=== PATIENT | female | born 1960 | race Caucasian/White ===

== ENCOUNTER 2018-05-06 11:52 | Inpatient (IN) | payer MEDICARE, MEDICAID, SELFPAY ==
[2018-05-06] VITALS (12 sets, daily range): BP systolic 115–138; BP diastolic 60–80; PULSE 88–107; RESP 4–28; TEMP 36.4–36.9; O2SAT 92–99
--- NOTE | 2018-05-06 12:05 | DI.RAD_ITS ---
SYMPTOMS/DIAGNOSIS: COPD, COUGH PA AND LATERAL CHEST: The heart is not enlarged. There are areas of apparent scarring in the lung bases bilaterally, probably unchanged from examination of 05/06/2016. No acute consolidations seen. No pleural effusions seen. The cardiac size is within normal limits. CONCLUSION: No evidence of acute disease.
--- NOTE | 2018-05-06 12:07 | W.ED.GENAD ---
Discharge Plan Disposition Patient Disposition: [facility] INPATIENT Condition: Good Discharge Details Chief Complaint: RespSymp Clinical Impression: Pneumonia involving right lung, COPD exacerbation Reason For Visit: BRIDGER Primary Care Provider: Laura Renae ED Provider: Kareem Silva Home Meds and New Rx's Prescriptions: No Action cyclobenzaprine 10 MG tablet 10 mg PO BID RF: 0 trazodone 50 MG tablet 50 mg PO HS RF: 0 venlafaxine [Effexor XR] 150 MG capsule,extended release 24hr 150 mg PO DAILY RF: 0 pregabalin [Lyrica] 100 MG capsule 150 mg PO TID RF: 0 naproxen 500 MG tablet 500 mg PO BID Qty: 30 RF: 0 lisinopril 2.5 MG tablet 2.5 mg PO HS RF: 0 doxycycline monohydrate 75 mg Tablet 100 mg PO BID RF: 0 benzonatate 200 mg Capsule 200 mg PO BID RF: 0 meclizine 25 mg Tablet 25 mg PO TID RF: 0 ipratropium-albuterol [Combivent Respimat] 20-100 mcg/actuation Mist 20 - 100 % RF: 0 bupropion HCl [Wellbutrin XL] 300 mg Tablet Extended Release 24 Hr 300 mg PO DAILY RF: 0 Medical Decision Making 57-year-old female smoker with a history of COPD presents with persistent cough despite 4-5 days of antibiotic therapy (doxycycline), with persistent congestion, wheeze. She arrives with an oxygen of 92%, able speak in full sentences and with otherwise reassuring vital signs. Deferred diagnosis includes pneumonia, bronchitis, COPD exacerbation. Patient had IV access established, given steroids, inhaled DuoNeb, referred for laboratory testing and chest x-ray. Diagnostics are notable for right-sided infiltrate on chest x-ray. Her laboratories are reassuring. Patient given dose of ceftriaxone. Clinically, patient has persistent hypoxia and when ambulatory will desaturate and become tachycardic with recurrent paroxysms of cough. Given the hypoxia, tachycardia, & infiltrate, I will recommend admission for further management. HPI General Mode of arrival: EMS. Date/Time Provider Initiated Documentation: 05/06/18 11:57. Limitations to Documentation: no limitations. Information obtained by: patient and EMS. History of Present Illness 57 year old F presents to the emergency department with the chief complaint of Cough, described as moderate, Quality is described as constant, Patient reports no radiation. Patient started experiencing this day(s) and it has been intermittent. No exacerbating factors reported . Patient did receive the following treatments prior to arrival, none HPI Narrative: Cough: 57-year-old female's with a history of COPD presents from home via EMS. She has had a week of cough, congestion, production of green sputum. She was seen at her primary care physician's office in [place], [place] and started on doxycycline, now day 5. Persistent cough and dyspnea at home with associated wheeze that was refractive to inhalers. She called EMS and was transported to the ED Related Data Home Medications Medication Instructions Recorded Confirmed cyclobenzaprine 10 mg PO BID 05/26/15 05/06/18 pregabalin [Lyrica] 150 mg PO TID 05/26/15 05/06/18 trazodone 50 mg PO HS 05/26/15 05/06/18 venlafaxine [Effexor XR] 150 mg PO DAILY 05/26/15 05/06/18 naproxen 500 mg PO BID #30 tablet 10/06/15 05/06/18 lisinopril 2.5 mg PO HS 09/20/17 05/06/18 benzonatate 200 mg PO BID 05/06/18 05/06/18 bupropion HCl [Wellbutrin XL] 300 mg PO DAILY 05/06/18 05/06/18 doxycycline monohydrate 100 mg PO BID 05/06/18 05/06/18 ipratropium-albuterol [Combivent 20 - 100 % 05/06/18 Respimat] meclizine 25 mg PO TID 05/06/18 05/06/18 Previous Rx's Medication Instructions Recorded naproxen 500 mg PO BID #30 tablet 10/06/15 Allergies Allergy/AdvReac Type Severity Reaction Status Date / Time No Known Allergies Allergy Unverified 09/20/17 13:34 General Stated Complaint: RespSymp LILLY: 3 Review of Systems Review of Systems 8 systems reviewed and otherwise negative PFSH Social History Smoking/Tobacco Use Status: Current every day Exam Narrative Exam Narrative: GEN: awake, alert, oriented 3. Pleasant, well groomed, interactive. HEAD: Normocephalic, atraumatic ENT: Mucous membranes moist, oropharynx unremarkable, External ear exam unremarkable EYES: PERRL, EOMI NECK: Full ROM, no LUCILA, no menigismus CHEST/RESP: Nontender, cough noted, basilar rhonchi with end expiratory wheeze bilaterally CARDIOVASCULAR: RRR, no murmur, rub chacorta. 2+ Rad pulse bilateral ABDOMEN: Soft, nontender, no mass. +Bowel sounds EXT: Full ROM, no edema, no rash Neuro: Grossly normal neurologic exam, conversant, interactive. Psych: Speech fluent, thoughts congruent, affect normal Course Vital Signs Temperature 36.8 C 05/06/18 11:57 Pulse 94 H 05/06/18 11:57 Respiratory Rate 18 05/06/18 11:57 Blood Pressure 118/74 05/06/18 11:57 Pulse Oximetry 92 L 05/06/18 11:57 Temperature 36.8 C 05/06/18 12:02 Temperature Source Temporal Artery Scan 05/06/18 12:02 Pulse 94 H 05/06/18 12:02 Respiratory Rate 28 H 05/06/18 12:02 Respiratory Effort Labored 05/06/18 12:00 Respiratory Depth Shallow 05/06/18 12:00 Blood Pressure 118/74 05/06/18 12:02 Blood Pressure Position Sitting 05/06/18 11:57 Pulse Oximetry 92 L 05/06/18 12:02 Oxygen Delivery Method Room Air 05/06/18 12:02 Oxygen Flow Rate 0 05/06/18 12:02 Pain Level 0 05/06/18 11:57
[2018-05-06] MEDS: Albuterol/Ipratropium 3 ML UPD VIAL ×2 (12:08→12:54)
--- NOTE | 2018-05-06 12:10 | ED.GENADUL_ITS ---
Discharge Plan Disposition Patient Disposition: [facility] INPATIENT Condition: Good Discharge Details Chief Complaint: RespSymp Clinical Impression: Pneumonia involving right lung, COPD exacerbation Reason For Visit: BRIDGER Primary Care Provider: Laura Renae ED Provider: Kareem Silva Home Meds and New Rx's Prescriptions: No Action cyclobenzaprine 10 MG tablet 10 mg PO BID RF: 0 trazodone 50 MG tablet 50 mg PO HS RF: 0 venlafaxine [Effexor XR] 150 MG capsule,extended release 24hr 150 mg PO DAILY RF: 0 pregabalin [Lyrica] 100 MG capsule 150 mg PO TID RF: 0 naproxen 500 MG tablet 500 mg PO BID Qty: 30 RF: 0 lisinopril 2.5 MG tablet 2.5 mg PO HS RF: 0 doxycycline monohydrate 75 mg Tablet 100 mg PO BID RF: 0 benzonatate 200 mg Capsule 200 mg PO BID RF: 0 meclizine 25 mg Tablet 25 mg PO TID RF: 0 ipratropium-albuterol [Combivent Respimat] 20-100 mcg/actuation Mist 20 - 100 % RF: 0 bupropion HCl [Wellbutrin XL] 300 mg Tablet Extended Release 24 Hr 300 mg PO DAILY RF: 0 Medical Decision Making 57-year-old female smoker with a history of COPD presents with persistent cough despite 4-5 days of antibiotic therapy (doxycycline), with persistent congestion , wheeze. She arrives with an oxygen of 92%, able speak in full sentences and with otherwise reassuring vital signs. Deferred diagnosis includes pneumonia, bronchitis, COPD exacerbation. Patient had IV access established, given steroids, inhaled DuoNeb, referred for laboratory testing and chest x-ray. Diagnostics are notable for right-sided infiltrate on chest x-ray. Her laboratories are reassuring. Patient given dose of ceftriaxone. Clinically, patient has persistent hypoxia and when ambulatory will desaturate and become tachycardic with recurrent paroxysms of cough. Given the hypoxia, tachycardia, & infiltrate, I will recommend admission for further management. HPI General Mode of arrival: EMS . Date/Time Provider Initiated Documentation: 05/06/18 11:57 . Limitations to Documentation: no limitations . Information obtained by: patient and EMS . History of Present Illness 57 year old F presents to the emergency department with the chief complaint of Cough, described as moderate, Quality is described as constant, Patient reports no radiation. Patient started experiencing this day(s) and it has been intermittent. No exacerbating factors reported . Patient did receive the following treatments prior to arrival, none HPI Narrative: Cough: 57-year-old female's with a history of COPD presents from home via EMS. She has had a week of cough, congestion, production of green sputum. She was seen at her primary care physician's office in [place], [place] and started on doxycycline, now day 5. Persistent cough and dyspnea at home with associated wheeze that was refractive to inhalers. She called EMS and was transported to the ED Related Data Home Medications Medication Instructions Recorded Confirmed cyclobenzaprine 10 mg PO BID 05/26/15 05/06/18 pregabalin [Lyrica] 150 mg PO TID 05/26/15 05/06/18 trazodone 50 mg PO HS 05/26/15 05/06/18 venlafaxine [Effexor XR] 150 mg PO DAILY 05/26/15 05/06/18 naproxen 500 mg PO BID #30 tablet 10/06/15 05/06/18 lisinopril 2.5 mg PO HS 09/20/17 05/06/18 benzonatate 200 mg PO BID 05/06/18 05/06/18 bupropion HCl [Wellbutrin XL] 300 mg PO DAILY 05/06/18 05/06/18 doxycycline monohydrate 100 mg PO BID 05/06/18 05/06/18 ipratropium-albuterol [Combivent 20 - 100 % 05/06/18 Respimat] meclizine 25 mg PO TID 05/06/18 05/06/18 Previous Rx's Medication Instructions Recorded naproxen 500 mg PO BID #30 tablet 10/06/15 Allergies Allergy/AdvReac Type Severity Reaction Status Date / Time No Known Allergies Allergy Unverified 09/20/17 13:34 General Stated Complaint: RespSymp LILLY: 3 Review of Systems Review of Systems 8 systems reviewed and otherwise negative PFSH Social History Smoking/Tobacco Use Status: Current every day Exam Narrative Exam Narrative: GEN: awake, alert, oriented 3. Pleasant, well groomed, interactive. HEAD: Normocephalic, atraumatic ENT: Mucous membranes moist, oropharynx unremarkable, External ear exam unremarkable EYES: PERRL, EOMI NECK: Full ROM, no LUCILA, no menigismus CHEST/RESP: Nontender, cough noted, basilar rhonchi with end expiratory wheeze bilaterally CARDIOVASCULAR: RRR, no murmur, rub chacorta. 2+ Rad pulse bilateral ABDOMEN: Soft, nontender, no mass. +Bowel sounds EXT: Full ROM, no edema, no rash Neuro: Grossly normal neurologic exam, conversant, interactive. Psych: Speech fluent, thoughts congruent, affect normal Course Vital Signs Temperature 36.8 C 05/06/18 11:57 Pulse 94 H 05/06/18 11:57 Respiratory Rate 18 05/06/18 11:57 Blood Pressure 118/74 05/06/18 11:57 Pulse Oximetry 92 L 05/06/18 11:57 Temperature 36.8 C 05/06/18 12:02 Temperature Source Temporal Artery Scan 05/06/18 12:02 Pulse 94 H 05/06/18 12:02 Respiratory Rate 28 H 05/06/18 12:02 Respiratory Effort Labored 05/06/18 12:00 Respiratory Depth Shallow 05/06/18 12:00 Blood Pressure 118/74 05/06/18 12:02 Blood Pressure Position Sitting 05/06/18 11:57 Pulse Oximetry 92 L 05/06/18 12:02 Oxygen Delivery Method Room Air 05/06/18 12:02 Oxygen Flow Rate 0 05/06/18 12:02 Pain Level 0 05/06/18 11:57
[2018-05-06] MEDS: MAGNESIUM SULFATE 2 GM/50 ML BAG IVPB (12:22)
[2018-05-06] MEDS: methylPREDNISolone SUCC 125 MG VIAL IVP (12:22)
[2018-05-06 12:37] LABS: HCT 40.8 % (36.0-46.0); HGB 13.7 g/dL (12.0-15.5); Mean Corp. HGB Concentration 33.6 g/dL (32.0-36.0); Mean Corpuscular Hemoglobin 31.8 pg (27.0-33.0); Mean Corpuscular Volume 94.7 fL (80-95); Mean Platelet Volume 10.3 fL (8.0-11.0); Platelet Count 305 x1000/uL (130-400); RBC 4.31 m/cumm (4.00-5.20); RBC Distribution Width 13.4 % (11.7-14.6); White Blood Cell Count 9.01 k/cumm (4.4-10.8)
[2018-05-06 12:57] LABS: ALT 20 U/L (12-78); AST 19 U/L (15-37); Albumin 3.3 g/dL (3.4-5.0); Alkaline Phosphatase 100 U/L (46-116); Anion Gap 9.7 mmol/L (3-11); BUN 14 mg/dL (7-18); Bilirubin, Total 0.4 mg/dL (0.2-1.0); CO2 25.3 mmol/L (21.0-32.0); CREATININE 0.97 mg/dL (0.55-1.02); Calcium 9.4 mg/dL (8.5-10.1); Chloride 104 mmol/L (98-107); Estimated GFR 58.78 (mL/min/1.73m2); Glucose 100 mg/dL (70-100); Sodium 139 mmol/L (136-145); Total Protein 7.3 g/dL (6.4-8.2)
[2018-05-06 13:01] LABS: Absolute Eosinophil Count 0.09 k/cumm (0.0-0.7); Absolute Lymphocyte Count 2.61 k/cumm (1.2-3.4); Absolute Monocyte Count 0.63 k/cumm (0.11-0.7); Absolute Neutrophil Count 5.68 k/cumm (1.2-6.7); Atypical Lymphocytes % 5; Diff Comment Manual Differential
[2018-05-06 13:02] LABS: RBC Morphology Normal
--- NOTE | 2018-05-06 13:29 | NUR.NOTE ---
Ambulated 50 feet around the department. Pt SpO2 to 90% tachycardia at 120, Dr Silva notified Nursing Note:
--- NOTE | 2018-05-06 14:27 | NUR.NOTE ---
Therese Smalls received report to assume care. Pt transported to room 206Nursing Note:
--- NOTE | 2018-05-06 15:59 | HPE_ITS ---
Date of service: 05/06/18 Time of Service: 15:41 Assessment and Plan (1) Pneumonia: Current visit: Yes Status: Acute With evidence of right-sided infiltrate according to Dr. Silva in the emergency room, however according to radiologist there is in no acute consolidations seen with appearance of scarring in the lung bases bilaterally. Nevertheless we will treat for COPD exacerbation with azithromycin and ceftriaxone. Additionally will administer scheduled duo nebs every 6 hours in addition to as needed albuterol. Has extensive wheezing and would likely benefit from IV corticosteroids. Received 125 mg of IV Solu-Medrol. Continue with 60 mg every 8 hours and titrate downwards. Would benefit from a prolonged prednisone taper. No evidence that blood cultures were drawn prior to initiation of antibiotics. Remains afebrile with no leukocytosis. Monitor daily blood work to include a CBC with differential and BMP. Nursing to obtain vital signs every shift and as needed and to monitor intake and output. (2) COPD (chronic obstructive pulmonary disease): Current visit: Yes Status: Chronic Combivent on hold while administering nebulizer treatments. Otherwise plan as above (3) Hypertension: Current visit: Yes Status: Chronic Normotensive on outpatient regimen which includes lisinopril. We will continue here in the hospital. Placed on a heart healthy diet. (4) Depression with anxiety: Current visit: Yes Status: Acute Continue outpatient therapy. (5) DVT prophylaxis: Current visit: Yes Status: Acute Subcutaneous Lovenox. Has a history of pulmonary embolism in the past, however I suspect her respiratory symptoms are related to COPD exacerbation secondary to upper respiratory infection. Treatment as above. If she becomes hypoxemic despite treatment would consider chest CTA as d-dimer is bound to be elevated during acute infectious process. History of Present Illness Chief Complaint: Cough, shortness of breath Narrative: Nedra is a 57-year-old woman with depression/anxiety, hypertension , inappropriate sinus tachycardia, history of pulmonary embolism, insomnia, chronic back pain, COPD who presents to the emergency department today via EMS with persistent cough, shortness of breath unrelieved by outpatient doxycycline. Symptoms began roughly 2 weeks ago. She describes developing a common cold with elevated temperature with T-max of 101.6. She presented to [facility] and was given a cough suppressant which really seemed to help. She felt some improvement, however over the course of the next couple of days she developed a cough, congestion and increasing shortness of breath. She returned to her PCP and was given a prescription for doxycycline which she started 4-5 days ago. Unfortunately this has not helped her symptoms. Continues with a dry, persistent cough and significant shortness of breath. Nothing seems to make symptoms better or worse. Denies associated signs/ symptoms. Today her dyspnea became so severe that she activated EMS and was transported to the emergency department. In the emergency room she had screening blood work which was essentially normal. Chest x-ray showed possible right sided infiltrate. She was given a dose of IV ceftriaxone and admitted to the hospitalist service for further monitoring secondary to hypoxia, tachycardia on exertion. Review of Systems Constitutional Reports as per HPI, Reports difficulty sleeping, Reports fatigue, Reports fever( s) and Reports weakness Eyes Reports system reviewed and no additional complaints, except as docu ENT Reports system reviewed and no additional complaints, except as docu Cardiovascular Reports rapid heart rate, Reports dyspnea and Reports dyspnea on exertion Respiratory Reports as per HPI, Reports chest congestion, Reports cough, Reports excessive phlegm production, Reports dyspnea, Reports dyspnea on exertion and Reports wheezing Gastrointestinal Reports system reviewed and no additional complaints, except as docu Genitourinary Reports system reviewed and no additional complaints, except as docu Musculoskeletal Reports system reviewed and no additional complaints, except as docu Integumentary/Breasts Reports system reviewed and no additional complaints, except as docu Neurologic Reports system reviewed and no additional complaints, except as docu and Reports weakness Psychiatric Reports abnormal sleep pattern, Reports anxiety and Reports depression Endocrine Reports system reviewed and no additional complaints, except as docu and Reports fatigue Hematologic/Lymphatic Reports system reviewed and no additional complaints, except as docu Allergic/Immunologic Reports system reviewed and no additional complaints, except as docu and Reports wheezing PFSH Social History Smoking/Tobacco Use Status: Current every day Meds Home Medications Medication Instructions Recorded Confirmed Type cyclobenzaprine 10 mg PO BID 05/26/15 05/06/18 History pregabalin [Lyrica] 150 mg PO TID 05/26/15 05/06/18 History trazodone 50 mg PO HS 05/26/15 05/06/18 History venlafaxine [Effexor XR] 150 mg PO DAILY 05/26/15 05/06/18 History naproxen 500 mg PO BID #30 tablet 10/06/15 05/06/18 Rx lisinopril 2.5 mg PO HS 09/20/17 05/06/18 History benzonatate 200 mg PO BID 05/06/18 05/06/18 History bupropion HCl [Wellbutrin XL] 300 mg PO DAILY 05/06/18 05/06/18 History doxycycline monohydrate 100 mg PO BID 05/06/18 05/06/18 History ipratropium-albuterol [Combivent 20 - 100 % 05/06/18 History Respimat] meclizine 25 mg PO TID 05/06/18 05/06/18 History Allergies Allergy/AdvReac Type Severity Reaction Status Date / Time No Known Allergies Allergy Unverified 09/20/17 13:34 Exam Narrative Exam Narrative: General: 57yo female, overweight, anxious. Well developed and well nourished. No acute distress. A/Ox3. Pleasant and cooperative. HEENT: Normocephalic, Atraumatic. Conjunctiva clear, sclera non-icteric. PERRL. EOMI. Moist mucous membranes, oropharynx clear. Neck supple, no JVD, thyromegaly or lymphadenopathy. Cardiovascular: Regular rate and rhythm, S1S2, no S3 or S4. No murmur, rub, gallop. Respiratory: Chest expansion symmetrical, respirations unlabored. Lungs with scattered rhonchi and diffuse inspiratory and expiratory wheezing. GI: Abdomen round, soft, non-tender to palpation. Normoactive bowel sounds in all 4 quadrants. No hepatosplenomegaly or prominent masses. : deferred Extremities: Lower extremities without deformity or edema Neurological: non-focal. CN 2-12 grossly intact. Psychiatric: pleasant and cooperative. Speech clear and articulate. Mood and affect normal. Results Labs : 05/06/18 12:20 05/06/18 12:20 Laboratory Results - last 24 hr 05/06/18 05/06/18 12:20 12:20 WBC 9.01 RBC 4.31 Hgb 13.7 Hct 40.8 MCV 94.7 MCH 31.8 MCHC 33.6 RDW 13.4 Plt Count 305 MPV 10.3 Immature Gran % 0.0 Neutrophils % 63.0 Lymphocytes % 24.0 Monocytes % 7.0 Eosinophils % 1.0 Basophils % 0.0 Absolute Neutrophils 5.68 Absolute Lymphocytes 2.61 Absolute Monocytes 0.63 Absolute Eosinophils 0.09 Absolute Basophils 0.00 Differential Comment Manual differential Atypical Lymphocytes 5 RBC Morphology Normal Sodium 139 Potassium 4.0 Chloride 104 Carbon Dioxide 25.3 Anion Gap 9.7 BUN 14 Creatinine 0.97 Estimated GFR/1.73 m2 58.78 Glucose 100 Calcium 9.4 Total Bilirubin 0.4 AST 19 ALT 20 Alkaline Phosphatase 100 Total Protein 7.3 Albumin 3.3 L
[2018-05-06] MEDS: AZITHROMYCIN 500 MG in Normal Saline 250 ML 250 MG IVPB (16:24)
[2018-05-06] MEDS: Enoxaparin 40 MG/0.4 ML SYR SC (16:24)
[2018-05-06] MEDS: Cyclobenzaprine 10 MG TAB PO (19:59)
[2018-05-06] MEDS: Benzonatate 200 MG CAP PO (19:59)
[2018-05-06] MEDS: Pregabalin 50 MG CAP 150 MG PO (19:59)
[2018-05-06] MEDS: Albuterol/Ipratropium 3 ML UPD VIAL UPD (19:59)
[2018-05-06] MEDS: methylPREDNISolone SUCC 125 MG VIAL 60 MG IVP (19:59)
[2018-05-06] MEDS: Meclizine 25 MG TAB PO (19:59)
[2018-05-06] MEDS: Normal Saline Flush 10 ML SYR (20:00)
[2018-05-06] MEDS: traZODone 50 MG TAB PO (21:35)
[2018-05-07] MEDS: Normal Saline Flush 10 ML SYR IVP (04:39)
[2018-05-07] MEDS: methylPREDNISolone SUCC 125 MG VIAL 60 MG IVP (04:39)
[2018-05-07 07:18] LABS: Absolute Basophil Count 0.01 k/cumm (0.0-0.2); Absolute Lymphocyte Count 1.08 k/cumm (1.2-3.4); Absolute Monocyte Count 0.22 k/cumm (0.11-0.7); Absolute Neutrophil Count 9.42 k/cumm (1.2-6.7); Basophils % 0.1; HCT 40.9 % (36.0-46.0); HGB 13.6 g/dL (12.0-15.5); Immature Grans % 1.8; Lymphocytes % 9.9; Mean Corp. HGB Concentration 33.3 g/dL (32.0-36.0); Mean Corpuscular Hemoglobin 31.5 pg (27.0-33.0); Mean Corpuscular Volume 94.7 fL (80-95); Mean Platelet Volume 10.3 fL (8.0-11.0); Neutrophils % 86.2; Platelet Count 300 x1000/uL (130-400); RBC 4.32 m/cumm (4.00-5.20); RBC Distribution Width 13.3 % (11.7-14.6); White Blood Cell Count 10.93 k/cumm (4.4-10.8)
[2018-05-07 07:24] LABS: Anion Gap 10.9 mmol/L (3-11); BUN 14 mg/dL (7-18); CO2 25.1 mmol/L (21.0-32.0); CREATININE 0.97 mg/dL (0.55-1.02); Calcium 9.2 mg/dL (8.5-10.1); Chloride 105 mmol/L (98-107); Estimated GFR 58.78 (mL/min/1.73m2); Glucose 168 mg/dL (70-100); Potassium 4.4 mmol/L (3.5-5.1); Sodium 141 mmol/L (136-145)
[2018-05-07 07:30] VITALS: BP 126/79; PULSE 93; RESP 18; TEMP 36.5; O2SAT 93; O2SAT 94
[2018-05-07 07:32] VITALS: RESP 2; RESP 24; RESP 4; O2SAT 94
[2018-05-07] MEDS: Albuterol/Ipratropium 3 ML UPD VIAL UPD ×3 (07:32→19:28)
[2018-05-07] MEDS: Cyclobenzaprine 10 MG TAB PO ×2 (08:02→19:28)
[2018-05-07] MEDS: Meclizine 25 MG TAB PO ×3 (08:02→19:28)
[2018-05-07] MEDS: Pregabalin 50 MG CAP 150 MG PO ×3 (08:02→19:28)
[2018-05-07] MEDS: Venlafaxine 150 MG CAPCR PO (08:02)
[2018-05-07] MEDS: buPROPion-XL 150 MG TABCR 300 MG PO (08:02)
[2018-05-07] MEDS: Benzonatate 200 MG CAP PO ×2 (08:02→19:28)
[2018-05-07] MEDS: Acetaminophen 325 MG TAB PO (08:07)
[2018-05-07 08:14] VITALS: O2SAT 93
--- NOTE | 2018-05-07 08:50 | PHARADMIT ---
Addendum entered by Mily Morrow 05/08/18 15:41: Pharmacy Note Subjective slow improvement per progress note Objective HR-100 other VS okay no labs today Assessment azithromycin and ceftriaxone continue Plan continue to watch VS, labs and for med changes Original Note: Admission Pharmacy Clinical Review COPD exacerbation Code Status Full Code Current Weight 89 kg Renally Cleared and Narrow Therapeutic Index Meds Crcl ~60.70 mL/min current meds okay QTc Value / Action Taken BP Control, Fever BP 126/79 afebrile Electrolytes reviewed within normal limits DVT Prophylaxis enoxaparin Opiate Usage / Scheduled Bowel Regimen Ordered no/prn Plt/SCr for Heparin / Enoxaparin plt 300 SCr 0.97 INR for Warfarin n/a H/H stable, WBC/Bands h/h 13.6/40.9 wbc 10.93 Antibiotic appropriateness ceftriaxone and azithromycin Cultures and Sensitivities none Surgical ABX d/c within 24 hr n/a DM control / Insulin Dosing BG 168 none Heart Failure (Check EF%) (KENYA's, B-Block, Diuretics) lisinopril (home med) IV to PO Switch n/a Home Meds Reviewed -multiple anticholinergic medications: ipratropium, cyclobenzaprine, meclizine -buproprion may decrease the metabolism of venlafaxine (thus increase risk of side effects) -multiple [employer] depressants and serotonin modulators which can increase the risk of side effects Home Meds Not Ordered doxycycline (has other abx ordered), lisinopril (was cancelled by ), naproxen, combivent (has duonebs ordered) Comments -azithromycin changed to PO today -IV methylprednisolone changed to prednisone
[2018-05-07] MEDS: Albuterol 2.5 MG/3 ML INH SOLN VIAL UPD (10:12)
[2018-05-07] MEDS: Azithromycin 250 MG TAB PO (10:26)
--- NOTE | 2018-05-07 10:28 | PDOC.CMIN ---
- If Service Date Differs Date of service: 05/07/18 Time of Service: 10:28 Care Management Initial Assess REASON FOR HOSPITALIZATION:: Pneumonia PAST MEDICAL HISTORY/PAST SURGICAL HISTORY:: Hypertension, COPD, Depression & Anxiety, Lumbago with Sciatica PREVIOUS FUNCTIONAL STATUS/SOCIAL/FAMILY SUPPORTS:: Nedra resides alone in [place], she has family whom reside locally and are supportive. Nedra is independent at baseline, she manages ADL's CURRENT FUNCTIONAL STATUS:: Sitting up in her chair this morning eating her breakfast ADVANCE DIRECTIVES:: None on file Has patient been provided with information about the portal?: Yes Did the patient sign up for the portal?: No CODE STATUS:: Full Code INSURANCE COVERAGE / FINANCIAL ISSUES:: Medicare, Medicaid CURRENT HOME/COMMUNITY SERVICES/EQUIPMENT:: Currently Nedra has no services or medical equipment in the community. PRIMARY CARE PHYSICIAN:: Laura Renae POTENTIAL DISCHARGE NEEDS:: F/U appointment with PCP PATIENT/FAMILY EDUCATION NEEDS:: Review DC instructions, any limitations, and ongoing DC planning discussion. ANTICIPATED BARRIERS TO DISCHARGE:: None identified at this time. TRANSPORTATION:: Via private vehicle PLAN:: Nedra will return home with no anticipated services. She will F/U with PCP and plan of care as prescribed. Nedra will transport via private vehicle.
--- NOTE | 2018-05-07 10:43 | INITIAL_ITS ---
- If Service Date Differs Date of service: 05/07/18 Time of Service: 10:28 Care Management Initial Assess REASON FOR HOSPITALIZATION:: Pneumonia PAST MEDICAL HISTORY/PAST SURGICAL HISTORY:: Hypertension, COPD, Depression & Anxiety, Lumbago with Sciatica PREVIOUS FUNCTIONAL STATUS/SOCIAL/FAMILY SUPPORTS:: Nedra resides alone in [place], she has family whom reside locally and are supportive. Nedra is independent at baseline, she manages ADL's CURRENT FUNCTIONAL STATUS:: Sitting up in her chair this morning eating her breakfast ADVANCE DIRECTIVES:: None on file Has patient been provided with information about the portal?: Yes Did the patient sign up for the portal?: No CODE STATUS:: Full Code INSURANCE COVERAGE / FINANCIAL ISSUES:: Medicare, Medicaid CURRENT HOME/COMMUNITY SERVICES/EQUIPMENT:: Currently Nedra has no services or medical equipment in the community. PRIMARY CARE PHYSICIAN:: Laura Renae POTENTIAL DISCHARGE NEEDS:: F/U appointment with PCP PATIENT/FAMILY EDUCATION NEEDS:: Review DC instructions, any limitations, and ongoing DC planning discussion. ANTICIPATED BARRIERS TO DISCHARGE:: None identified at this time. TRANSPORTATION:: Via private vehicle PLAN:: eNdra will return home with no anticipated services. She will F/U with PCP and plan of care as prescribed. Nedra will transport via private vehicle.
[2018-05-07] MEDS: Budesonide/Formoterol 160/4.5 6 GM 60 PUFF INH IH ×2 (11:34→19:28)
--- NOTE | 2018-05-07 13:04 | W.PM.PROGNOT ---
Assessment and Plan (1) COPD (chronic obstructive pulmonary disease): Current visit: Yes Status: Chronic Exacerbation likely due to infectious trigger, cannot determine from clinical information whether this is viral, which is more probable, or bacterial. I am going to continue with antibiotics, but switch azithromycin to oral. Begin tapering steroids and switch to oral. Start on Symbicort in addition to her duo nebs which will continue every 6 hours. Continue oxygen supplementation and wean based on pulse oximetry. (2) Pneumonia: Current visit: Yes Status: Acute As noted above, not sure if this is viral or bacterial. Continue antibiotics and monitor clinical response. (3) Hypertension: Current visit: Yes Status: Chronic Blood pressures are doing fine, I am not sure lisinopril, given the low dose, is adding anything at this point for blood pressure control and might be contributing to her cough. Lisinopril on hold for now. (4) Depression with anxiety: Current visit: Yes Status: Acute No exacerbation of depression or anxiety on her outpatient medications, continue same. (5) Chronic back pain: Current visit: Yes Status: Acute Despite her harsh coughing she has not had any exacerbation of back pain. Subjective Interval history since last seen: Ms. Ellis reports a continued cough although feeling better than she did yesterday. No chest pain despite her cough which is minimally productive. No hemoptysis. Still has an oxygen requirement and gets short of breath with short walks in the room. She has not been febrile. She has not had any exacerbation of her chronic back pain secondary to coughing. No headache. No sore throat. No abdominal pain. No nausea. No diarrhea. No dysuria. No ankle swelling. Exam Narrative Exam Narrative: Frequent harsh cough, recovers and can speak in full sentences. No use of accessory muscles of respiration. No JVD. Lungs with scattered coarse crackles in the lower lung lopez bilaterally, and occasional faint expiratory wheeze. Regular heart rhythm no S3-S4 or murmur. Bowel sounds are present. No ankle edema. Objective Objective Clinical Data: Abnormal lab results 05/07/18 05/07/18 Range/Units 06:10 06:10 WBC 10.93 H (4.4-10.8) k/cumm Absolute Neutrophils 9.42 H (1.2-6.7) k/cumm Absolute Lymphocytes 1.08 L (1.2-3.4) k/cumm Glucose 168 H (70-100) mg/dL Vital Signs Temperature 36.5 C 05/07/18 07:30 Temperature Source Tympanic 05/07/18 07:30 Pulse 93 H 05/07/18 07:30 Pulse Rhythm Regular 05/07/18 08:07 Respiratory Rate 24 05/07/18 07:32 Respiratory Effort 05/07/18 08:07 Respiratory Depth Normal 05/07/18 08:07 Respiratory Pattern Normal 05/07/18 08:07 Blood Pressure 126/79 05/07/18 07:30 Blood Pressure Position Sitting 05/06/18 11:57 Pulse Oximetry 93 L 05/07/18 08:14 Oxygen Delivery Method Nasal Cannula 05/07/18 08:14 Oxygen Flow Rate 4 05/07/18 08:14 Pain Level 6 05/07/18 08:07 Intake & Output 05/06/18 05/07/18 05/07/18 23:59 11:59 23:59 Intake Total 1210 / 1210 Balance 1210 / 1210 Weight 89 kg Intake: IV 300 / 300 Oral 910 / 910 Other: Urine Color Yellow Yellow Urine Appearance Clear Clear Urine Odor Normal Normal Comment voided in toilet independently, not seen by nursing. Voiding Methods Toilet Toilet Laboratory Results WBC 10.93 k/cumm (4.4-10.8) H 05/07/18 06:10 RBC 4.32 m/cumm (4.00-5.20) 05/07/18 06:10 Hgb 13.6 g/dL (12.0-15.5) 05/07/18 06:10 Hct 40.9 % (36.0-46.0) 05/07/18 06:10 MCV 94.7 fL (80-95) 05/07/18 06:10 MCH 31.5 pg (27.0-33.0) 05/07/18 06:10 MCHC 33.3 g/dL (32.0-36.0) 05/07/18 06:10 RDW 13.3 % (11.7-14.6) 05/07/18 06:10 Plt Count 300 x1000/uL (130-400) 05/07/18 06:10 MPV 10.3 fL (8.0-11.0) 05/07/18 06:10 Immature Gran % 1.8 05/07/18 06:10 Neutrophils % 86.2 05/07/18 06:10 Lymphocytes % 9.9 05/07/18 06:10 Monocytes % 2.0 05/07/18 06:10 Eosinophils % 0.0 05/07/18 06:10 Basophils % 0.1 05/07/18 06:10 Absolute Neutrophils 9.42 k/cumm (1.2-6.7) H 05/07/18 06:10 Absolute Lymphocytes 1.08 k/cumm (1.2-3.4) L 05/07/18 06:10 Absolute Monocytes 0.22 k/cumm (0.11-0.7) 05/07/18 06:10 Absolute Eosinophils 0.00 k/cumm (0.0-0.7) 05/07/18 06:10 Absolute Basophils 0.01 k/cumm (0.0-0.2) 05/07/18 06:10 Differential Comment Manual differential 05/06/18 12:20 Atypical Lymphocytes 5 05/06/18 12:20 RBC Morphology Normal 05/06/18 12:20 Sodium 141 mmol/L (136-145) 05/07/18 06:10 Potassium 4.4 mmol/L (3.5-5.1) 05/07/18 06:10 Chloride 105 mmol/L (98-107) 05/07/18 06:10 Carbon Dioxide 25.1 mmol/L (21.0-32.0) 05/07/18 06:10 Anion Gap 10.9 mmol/L (3-11) 05/07/18 06:10 BUN 14 mg/dL (7-18) 05/07/18 06:10 Creatinine 0.97 mg/dL (0.55-1.02) 05/07/18 06:10 Estimated GFR/1.73 m2 58.78 (mL/min/1.73m2) 05/07/18 06:10 Glucose 168 mg/dL (70-100) H 05/07/18 06:10 Calcium 9.2 mg/dL (8.5-10.1) 05/07/18 06:10 Total Bilirubin 0.4 mg/dL (0.2-1.0) 05/06/18 12:20 AST 19 U/L (15-37) 05/06/18 12:20 ALT 20 U/L (12-78) 05/06/18 12:20 Alkaline Phosphatase 100 U/L (46-116) 05/06/18 12:20 Total Protein 7.3 g/dL (6.4-8.2) 05/06/18 12:20 Albumin 3.3 g/dL (3.4-5.0) L 05/06/18 12:20
[2018-05-07] MEDS: predniSONE 20 MG TAB 60 MG PO (13:07)
--- NOTE | 2018-05-07 15:58 | CHAPLAIN ---
Nedra was resting in bed when I visited. She is a member of the [employer] and she said she let her special events planner, Rev. Alberto Lawrence, know that she is here and she expects he will be in later today to visit.
[2018-05-07 16:20] VITALS: BP 135/81; PULSE 107; RESP 22; TEMP 37.1; O2SAT 93
[2018-05-07] MEDS: Enoxaparin 40 MG/0.4 ML SYR SC (16:38)
[2018-05-07 19:58] VITALS: RESP 18
[2018-05-07] MEDS: traZODone 50 MG TAB PO (21:09)
[2018-05-08 07:18] VITALS: PULSE 89; RESP 18; RESP 2; O2SAT 94
[2018-05-08] MEDS: Albuterol/Ipratropium 3 ML UPD VIAL UPD ×3 (07:18→19:08)
[2018-05-08] MEDS: Budesonide/Formoterol 160/4.5 6 GM 60 PUFF INH IH ×2 (07:22→19:28)
[2018-05-08] MEDS: Acetaminophen 325 MG TAB PO (08:45)
[2018-05-08] MEDS: buPROPion-XL 150 MG TABCR 300 MG PO (08:45)
[2018-05-08] MEDS: Azithromycin 250 MG TAB PO (08:46)
[2018-05-08] MEDS: Venlafaxine 150 MG CAPCR PO (08:46)
[2018-05-08] MEDS: Benzonatate 200 MG CAP PO ×2 (08:46→19:06)
[2018-05-08] MEDS: Meclizine 25 MG TAB PO ×3 (08:46→19:07)
[2018-05-08] MEDS: Cyclobenzaprine 10 MG TAB PO ×2 (08:46→19:07)
[2018-05-08] MEDS: predniSONE 20 MG TAB 60 MG PO (08:46)
[2018-05-08] MEDS: Pregabalin 50 MG CAP 150 MG PO ×3 (09:00→19:06)
[2018-05-08 09:30] VITALS: BP 114/65; PULSE 96; RESP 16; TEMP 36.5; O2SAT 93
--- NOTE | 2018-05-08 09:32 | PDOC.CMPRO ---
- If Service Date Differs Date of service: 05/08/18 Time of Service: 09:32 Care Management Progress Note S/O: Nedra is sitting up in her chair eating breakfast this morning. She continues on IV antibiotics at this time and her cough continues to be harsh. Nedra also continues to require oxygen at this time. No change in DC plan. A: 57 y/o female admitted 05/06/18 for Pneumonia. P: Nedra will return home with no anticipated services. She will F/U with PCP and plan of care as prescribed. family to transport.
[2018-05-08] MEDS: Polyethylene Glycol 3350 17 GM PACKET PO (09:52)
--- NOTE | 2018-05-08 15:00 | PGE_ITS ---
Assessment and Plan (1) COPD (chronic obstructive pulmonary disease): Current visit: Yes Status: Chronic Very slow improvement in cough, a bit better and wheeze. Continue oral steroids, neb treatments, Symbicort, and present antibiotic coverage. (2) Chronic back pain: Current visit: Yes Status: Acute No exacerbation, continue outpatient meds. (3) Depression with anxiety: Current visit: Yes Status: Acute Seems to be stable, no change in meds. Subjective Interval history since last seen: Still has harsh cough, sometimes to the point where she is getting a little dizzy but not presyncopal and no vomiting. Not short of breath at rest and as long she does not take a deep breath she does not trigger coughing exacerbations. Cough is been nonproductive. She still has an oxygen requirement. She has not been febrile. No bowel movement in the past 3 days which is atypical for her. Does not have abdominal pain nausea or vomiting. Exam Narrative Exam Narrative: No distress if she breathes shallowly, deep wheeze provoke harsh dry sounding cough. Afebrile, SaO2 on 3 L 93%. No JVD. Lungs good aeration with scattered late inspiratory crackles in the right lower lung field , faint expiratory wheezing heard throughout. No pleural friction rub. Regular heart rhythm no murmur S3 or S4. No ankle edema. Objective Objective Clinical Data: Vital Signs Temperature 36.5 C 05/08/18 09:30 Temperature Source Tympanic 05/08/18 09:30 Pulse 96 H 05/08/18 09:30 Pulse Rhythm Regular 05/08/18 09:30 Respiratory Rate 16 05/08/18 09:30 Respiratory Effort 05/08/18 09:30 Respiratory Depth Normal 05/08/18 09:30 Respiratory Pattern Normal 05/08/18 09:30 Blood Pressure 114/65 05/08/18 09:30 Blood Pressure Position Sitting 05/06/18 11:57 Pulse Oximetry 93 L 05/08/18 09:30 Oxygen Delivery Method Nasal Cannula 05/08/18 09:30 Oxygen Flow Rate 3 05/08/18 09:30 Fraction of Inspired Oxygen (FIO2) 36 05/08/18 07:23 Pain Level 6 05/07/18 08:07 Intake & Output 05/07/18 05/08/18 05/08/18 23:59 11:59 23:59 Intake Total 770 / 770 400 / 400 Output Total 550 / 550 Balance 770 / 770 -150 / -150 Intake: IV 50 / 50 Oral 720 / 720 400 / 400 Output: Urine 550 / 550 Other: Urine Color Yellow Yellow Urine Appearance Clear Clear Urine Odor Normal Normal Comment pt up multiple times to void throughout the shift Voiding Methods Toilet Toilet Laboratory Results WBC 10.93 k/cumm (4.4-10.8) H 05/07/18 06:10 RBC 4.32 m/cumm (4.00-5.20) 05/07/18 06:10 Hgb 13.6 g/dL (12.0-15.5) 05/07/18 06:10 Hct 40.9 % (36.0-46.0) 05/07/18 06:10 MCV 94.7 fL (80-95) 05/07/18 06:10 MCH 31.5 pg (27.0-33.0) 05/07/18 06:10 MCHC 33.3 g/dL (32.0-36.0) 05/07/18 06:10 RDW 13.3 % (11.7-14.6) 05/07/18 06:10 Plt Count 300 x1000/uL (130-400) 05/07/18 06:10 MPV 10.3 fL (8.0-11.0) 05/07/18 06:10 Immature Gran % 1.8 05/07/18 06:10 Neutrophils % 86.2 05/07/18 06:10 Lymphocytes % 9.9 05/07/18 06:10 Monocytes % 2.0 05/07/18 06:10 Eosinophils % 0.0 05/07/18 06:10 Basophils % 0.1 05/07/18 06:10 Absolute Neutrophils 9.42 k/cumm (1.2-6.7) H 05/07/18 06:10 Absolute Lymphocytes 1.08 k/cumm (1.2-3.4) L 05/07/18 06:10 Absolute Monocytes 0.22 k/cumm (0.11-0.7) 05/07/18 06:10 Absolute Eosinophils 0.00 k/cumm (0.0-0.7) 05/07/18 06:10 Absolute Basophils 0.01 k/cumm (0.0-0.2) 05/07/18 06:10 Differential Comment Manual differential 05/06/18 12:20 Atypical Lymphocytes 5 05/06/18 12:20 RBC Morphology Normal 05/06/18 12:20 Sodium 141 mmol/L (136-145) 05/07/18 06:10 Potassium 4.4 mmol/L (3.5-5.1) 05/07/18 06:10 Chloride 105 mmol/L (98-107) 05/07/18 06:10 Carbon Dioxide 25.1 mmol/L (21.0-32.0) 05/07/18 06:10 Anion Gap 10.9 mmol/L (3-11) 05/07/18 06:10 BUN 14 mg/dL (7-18) 05/07/18 06:10 Creatinine 0.97 mg/dL (0.55-1.02) 05/07/18 06:10 Estimated GFR/1.73 m2 58.78 (mL/min/1.73m2) 05/07/18 06:10 Glucose 168 mg/dL (70-100) H 05/07/18 06:10 Calcium 9.2 mg/dL (8.5-10.1) 05/07/18 06:10 Total Bilirubin 0.4 mg/dL (0.2-1.0) 05/06/18 12:20 AST 19 U/L (15-37) 05/06/18 12:20 ALT 20 U/L (12-78) 05/06/18 12:20 Alkaline Phosphatase 100 U/L (46-116) 05/06/18 12:20 Total Protein 7.3 g/dL (6.4-8.2) 05/06/18 12:20 Albumin 3.3 g/dL (3.4-5.0) L 05/06/18 12:20
[2018-05-08 15:15] VITALS: BP 130/82; PULSE 100; RESP 17; TEMP 37; O2SAT 91
[2018-05-08] MEDS: Normal Saline Flush 10 ML SYR IVP (15:21)
[2018-05-08] MEDS: Enoxaparin 40 MG/0.4 ML SYR SC (15:24)
[2018-05-08 19:04] VITALS: BP 130/81; PULSE 94; RESP 20; TEMP 36.8; O2SAT 93
[2018-05-08 19:08] VITALS: PULSE 94; RESP 19; RESP 20; RESP 4; O2SAT 93
[2018-05-08 19:38] VITALS: RESP 19
[2018-05-08] MEDS: traZODone 50 MG TAB PO (21:20)
[2018-05-09] VITALS (8 sets, daily range): BP systolic 100–118; BP diastolic 69–80; PULSE 92–122; RESP 2–24; TEMP 36–36.2; O2SAT 86–97
[2018-05-09] MEDS: Albuterol/Ipratropium 3 ML UPD VIAL UPD ×3 (02:26→13:03)
[2018-05-09] MEDS: Budesonide/Formoterol 160/4.5 6 GM 60 PUFF INH IH (07:30)
[2018-05-09] MEDS: buPROPion-XL 150 MG TABCR 300 MG PO (09:03)
[2018-05-09] MEDS: Pregabalin 50 MG CAP 150 MG PO ×2 (09:04→13:35)
[2018-05-09] MEDS: Benzonatate 200 MG CAP PO (09:04)
[2018-05-09] MEDS: Azithromycin 250 MG TAB PO (09:04)
[2018-05-09] MEDS: Meclizine 25 MG TAB PO ×2 (09:04→13:35)
[2018-05-09] MEDS: Venlafaxine 150 MG CAPCR PO (09:04)
[2018-05-09] MEDS: Cyclobenzaprine 10 MG TAB PO (09:04)
[2018-05-09] MEDS: predniSONE 20 MG TAB 60 MG PO (09:04)
--- NOTE | 2018-05-09 11:48 | DSE_ITS ---
Addendum entered and electronically signed by Savannah Main NP 05/09/18 15:04 : REASON FOR ADMISSION: COPD EXACERBATION PNEUMONIA Equipment needed: Home Oxygen This case was discussed with Dr. Butts who is in agreement. Original Note: Documented by User: Savannah Main NP 05/09/18 15:04 Date of service: Time of Service: Exam Const General: Orientation: [facility] Head: Mouth: Neck Neck: Resp Effort & Inspection: Auscultation: Cardio Rate: Heart Sounds: GI Palpation: Auscultation: Skin General skin exam: DS: Data Vitals/I&O Vitals and I&O: Vital Signs Temperature 36.2 C L 05/09/18 07:20 Temperature Source Tympanic 05/09/18 07:20 Pulse 94 H 05/09/18 07:20 Pulse Rhythm Regular 05/09/18 01:00 Respiratory Rate 20 05/09/18 07:27 Respiratory Effort 05/09/18 01:00 Respiratory Depth Normal 05/09/18 01:00 Respiratory Pattern Normal 05/09/18 01:00 Blood Pressure 100/69 05/09/18 07:20 Blood Pressure Position Sitting 05/06/18 11:57 Pulse Oximetry 97 05/09/18 07:27 Oxygen Delivery Method Nasal Cannula 05/09/18 07:27 Oxygen Flow Rate 3 05/09/18 07:27 Fraction of Inspired Oxygen (FIO2) 36 05/08/18 07:23 Pain Level 0 05/08/18 19:04 Intake & Output 05/08/18 05/08/18 05/09/18 11:59 23:59 11:59 Intake Total 400 / 400 555 / 555 350 / 350 Output Total 550 / 550 1450 / 1450 1400 / 1400 Balance -150 / -150 -895 / -895 -1050 / -1050 Intake: IV 55 / 55 Oral 400 / 400 500 / 500 350 / 350 Output: Urine 550 / 550 1450 / 1450 1400 / 1400 Other: Urine Color Yellow Pale Yellow Yellow Urine Appearance Clear Clear Clear Urine Odor Normal None Normal Stool Size Copious Stool Characteristics Soft Formed Brown Voiding Methods Toilet Toilet Toilet Diaper Completed studies during hospitalization [Text1]: 05/06/18 PA AND LATERAL CHEST: The heart is not enlarged. There are areas of apparent scarring in the lung bases bilaterally, probably unchanged from examination of 05/06/2016. No acute consolidations seen. No pleural effusions seen. The cardiac size is within normal limits. CONCLUSION: No evidence of acute disease. Pending studies at discharge: WBC 10.93 k/cumm (4.4-10.8) H 05/07/18 06:10 RBC 4.32 m/cumm (4.00-5.20) 05/07/18 06:10 Hgb 13.6 g/dL (12.0-15.5) 05/07/18 06:10 Hct 40.9 % (36.0-46.0) 05/07/18 06:10 MCV 94.7 fL (80-95) 05/07/18 06:10 MCH 31.5 pg (27.0-33.0) 05/07/18 06:10 MCHC 33.3 g/dL (32.0-36.0) 05/07/18 06:10 RDW 13.3 % (11.7-14.6) 05/07/18 06:10 Plt Count 300 x1000/uL (130-400) 05/07/18 06:10 MPV 10.3 fL (8.0-11.0) 05/07/18 06:10 Immature Gran % 1.8 05/07/18 06:10 Neutrophils % 86.2 05/07/18 06:10 Lymphocytes % 9.9 05/07/18 06:10 Monocytes % 2.0 05/07/18 06:10 Eosinophils % 0.0 05/07/18 06:10 Basophils % 0.1 05/07/18 06:10 Absolute Neutrophils 9.42 k/cumm (1.2-6.7) H 05/07/18 06:10 Absolute Lymphocytes 1.08 k/cumm (1.2-3.4) L 05/07/18 06:10 Absolute Monocytes 0.22 k/cumm (0.11-0.7) 05/07/18 06:10 Absolute Eosinophils 0.00 k/cumm (0.0-0.7) 05/07/18 06:10 Absolute Basophils 0.01 k/cumm (0.0-0.2) 05/07/18 06:10 Differential Comment Manual differential 05/06/18 12:20 Atypical Lymphocytes 5 05/06/18 12:20 RBC Morphology Normal 05/06/18 12:20 Sodium 141 mmol/L (136-145) 05/07/18 06:10 Potassium 4.4 mmol/L (3.5-5.1) 05/07/18 06:10 Chloride 105 mmol/L (98-107) 05/07/18 06:10 Carbon Dioxide 25.1 mmol/L (21.0-32.0) 05/07/18 06:10 Anion Gap 10.9 mmol/L (3-11) 05/07/18 06:10 BUN 14 mg/dL (7-18) 05/07/18 06:10 Creatinine 0.97 mg/dL (0.55-1.02) 05/07/18 06:10 Estimated GFR/1.73 m2 58.78 (mL/min/1.73m2) 05/07/18 06:10 Glucose 168 mg/dL (70-100) H 05/07/18 06:10 Calcium 9.2 mg/dL (8.5-10.1) 05/07/18 06:10 Total Bilirubin 0.4 mg/dL (0.2-1.0) 05/06/18 12:20 AST 19 U/L (15-37) 05/06/18 12:20 ALT 20 U/L (12-78) 05/06/18 12:20 Alkaline Phosphatase 100 U/L (46-116) 05/06/18 12:20 Total Protein 7.3 g/dL (6.4-8.2) 05/06/18 12:20 Albumin 3.3 g/dL (3.4-5.0) L 05/06/18 12:20 Documented by User: Neal Butts MD 05/09/18 17:25 Discharge Plan Disposition Patient Disposition: HOME Condition: Good Discharge Details Reason For Visit: PNEUMONIA Admit Date/Time: 05/06/18 13:58 Admit Provider: Сергей Zavala Attending Provider: Сергей Zavala Primary Care Provider: Laura Renae Hospital Course Hospital Course: Nedra is a 57-year-old woman with depression/anxiety, hypertension, sinus tachycardia, history of pulmonary embolism, insomnia, chronic back pain, COPD who presents to the emergency department on 05/06/18 via EMS with persistent cough, shortness of breath unrelieved by outpatient doxycycline. Her symptoms began roughly 2 weeks prior to her presentation. She describes developing a common cold with elevated temperature with T-max of 101.6. She initially presented to [facility] and was given a cough suppressant which really seemed to help. She felt some improvement, however over the course of the following few days she developed a cough, congestion and increasing shortness of breath. She returned to her PCP and was given a prescription for doxycycline which she took for 4-5 days. Unfortunately, her symptoms persisted even on the Doxycycline, prompting her presentation to the ED. In the emergency room she had screening blood work which was essentially normal. Chest x-ray showed possible right sided infiltrate. She was started on IV antibiotics and admitted to the Med/surg floor for further evaluation and treatment. She continued on IV ceftriaxone and azithromycin as well as IV steroids and updrafts. She required supplemental oxygen. Her condition improved over the following days. By the day of discharge, she had transitioned to oral azithromycin and prednisone. She continued to have an oxygen requirement. She remained short of breath with activity, which she reports as her baseline. She continues to cough, however, she reports marked improvement in her cough since her arrival. RT trialed her on room air. At rest she dropped as low as 86%. She underwent an ambulatory oximetry test and was able to maintain oxygen saturations in the 90s on 2 liters/min via nasal cannula. She will be discharged home with oxygen. She will follow up with her PCP to determine when she no longer requires oxygen. She will be discharged home to complete her antibiotic course, including azithromycin and ceftin. She will be tapered off prednisone. She will be provided with a prescription for tessaw carrasco. She is scheduled with close PCP follow up. She is advised to return to the hospital if she experiences a fever or has worsening or recurrence of symptoms. Home Meds and New Rx's Prescriptions: New azithromycin 250 mg Tablet 250 mg PO DAILY Qty: 1 RF: 0 benzonatate 200 mg Capsule 200 mg PO TID Qty: 15 RF: 0 prednisone 10 mg tablet 10 mg PO DAILY Qty: 30 RF: 0 cefuroxime axetil 500 mg tablet 500 mg PO Q12H 2 Days Qty: 4 RF: 0 Continue cyclobenzaprine 10 MG tablet 10 mg PO BID RF: 0 trazodone 50 MG tablet 50 mg PO HS RF: 0 venlafaxine [Effexor XR] 150 MG capsule,extended release 24hr 150 mg PO DAILY RF: 0 pregabalin [Lyrica] 100 MG capsule 150 mg PO TID RF: 0 naproxen 500 MG tablet 500 mg PO BID Qty: 30 RF: 0 lisinopril 2.5 MG tablet 2.5 mg PO HS RF: 0 meclizine 25 mg Tablet 25 mg PO TID RF: 0 ipratropium-albuterol [Combivent Respimat] 20-100 mcg/actuation Mist 20 - 100 % RF: 0 bupropion HCl [Wellbutrin XL] 300 mg Tablet Extended Release 24 Hr 300 mg PO DAILY RF: 0 Discontinued doxycycline monohydrate 75 mg Tablet 100 mg PO BID RF: 0 benzonatate 200 mg Capsule 200 mg PO BID RF: 0 Discharge Instructions Instructions: Community Acquired Pneumonia (DC) Additional Instructions: Take your antibiotics until they are gone. Take prednisone taper as directed: Take 4 tablets daily x3 days, then 3 tab daily x3 days, then 2 tab daily x3 days then 1 tab daily x3 days then stop. Take tessalon perles three times per day. You may cut back or stop as your cough improved. Follow up with your PCP as scheduled. If your symptoms recur or worsen, or if you develop a fever, return to the ED. Stand Alone Forms: Nursing Discharge Form Referrals: DESTIN EDDY [Other] - 05/14/18 12:45 pm Activity:: Activity as Tolerated Equipment/Supplies:: No Equipment Needed Diet:: As Tolerated Discharge Orders Discharge Orders: Discharge Order (Routine); Ordered 05/09/18 Ordered By: Savannah Main Discharge Data Discharge Date/Time-TO BE ENTERED AT DEPARTURE: 05/09/18 13:37
--- NOTE | 2018-05-09 12:17 | CMDISCH_ITS ---
- If Service Date Differs Date of service: 05/09/18 Time of Service: 12:13 LACE Index Scoring Tool - Questions: Length of Stay (in days): 3 Acuity (Admit via E.D.?): Yes Comorbidities: Chronic Pulmonary Disease E.D. Visits: 2 - Answers: Total Score: 10 Risk of Readmission: High Risk Care Management Discharge Reason for Hospitalization: Pneumonia Discharge Plan: Nedra will return home today with home oxygen. She will require [facility] for transport. CHRIST spoke with MATEUS Jeter, and arranged for transportation at 1330 to [facility] and then home. CHRIST has notified ARPAN Mcclure, of time and mode of transport. CHRIST also spoke with RT Boni, to alert of time of DC as Nedra will have new home oxygen. Nedra will F/U with PCP and plan of care as prescribed. Patient/Family Education Needs: Review DC instructions, any limitations, and review Ask Me Three Services Needed at Discharge: Oxygen Therapy, Transportation ([facility])
== END 2018-05-09 13:37 | disposition home or self-care (01) | DRG 190 ==
LOC: ER 14:04 → MS 18:12
PROVIDERS: Nurse Practitioner Primary Care; Admitting Provider Family Medicine; Emergency Provider Emergency Medicine; PCP Family Medicine; Visit Provider Internal Medicine
DX: J44.0 Chronic obstructive pulmonary disease with (acute) lower respiratory infection (principal); J18.9 Pneumonia, unspecified organism; J44.1 Chronic obstructive pulmonary disease with (acute) exacerbation; R09.02 Hypoxemia; G89.29 Other chronic pain; I10 Essential (primary) hypertension; Z86.711 Personal history of pulmonary embolism; F51.09 Other insomnia not due to a substance or known physiological condition; F41.8 Other specified anxiety disorders; F17.210 Nicotine dependence, cigarettes, uncomplicated
CPT/HCPCS: 36415; 80048; 80053; 94640; 96365; 96366; 96367; 96375; 99223; 99232; 99239; 99285; J1650; 71046; 85025; 99238; 99284; J0456; J0696; J2930; J7512; J7613; J7620

== ENCOUNTER 2018-07-22 00:17 | Outpatient (CLI) | payer MEDICARE, MEDICAID, SELFPAY ==
--- NOTE | 2018-07-22 10:00 | DI.CT_ITS ---
SYMPTOM/DIAGNOSIS: R/U RUL LUNG NODULE FROM 04/21 CT CHEST: CT scan of the chest was performed following the uneventful administration of intravenous contrast material. Comparison is 04/27/16. There are hypodense lesions seen within the thyroid gland. The largest is present in the right lobe and measures 1.2 cm. Follow up as clinically appropriate. There is atherosclerosis of the thoracic aorta but no aneurysmal dilatation seen. Heart size is within normal limits. No significant pericardial effusion present. Coronary artery calcifications are present. No significant thoracic adenopathy, pleural effusion, or pneumothorax is identified. Emphysematous changes are present in the lungs. There is again seen a 0.4 cm noncalcified pulmonary nodule in the right upper lobe (Series 2, image 249). It is unchanged compared to the prior examination. No new pulmonary nodules are appreciated. There is scarring or atelectasis in the right middle lobe, left lingula and both lower lobes. Tracheobronchial tree is unremarkable. Upper abdominal images show no acute abnormality Degenerative changes are seen in the spine. No aggressive osseous lesions are identified. IMPRESSION: 1. Stable 4 mm right upper lobe pulmonary nodule 2. Multinodular thyroid gland. Follow up as clinically appropriate. 3. Bilateral pulmonary scarring and/or atelectasis 4. Pulmonary emphysema.
[2018-07-22] MEDS: Omnipaque 350 MG/ML 100 ML BTL IJ (10:19)
--- NOTE | 2018-07-22 10:20 | MERGE_ITS ---
*[facility]* *[facility]* [address] [place] [address] Date of study: 07/22/2018 Transthoracic Echocardiography M-mode, complete 2D, complete spectral Doppler, and color Doppler *STUDY CONCLUSIONS* Summary: 1. Left ventricle: The cavity size was normal. Systolic function was normal. The estimated ejection fraction was 60-65%. Doppler parameters are consistent with high ventricular filling pressure. 2. Mitral valve: There was mild regurgitation. 3. Right ventricle: The cavity size was normal. Wall thickness was normal. Systolic function was normal. 4. Atrial septum: No defect or patent foramen ovale was identified. 5. Pulmonary arteries: Pulmonary systolic pressure was in the range of 25mm Hg to 35mm Hg. 6. Inferior vena cava: The vessel was patent and normal in size. The respirophasic diameter changes were in the normal range (greater than or equal to 50%), consistent with normal central venous pressure. *PATIENT PRESENTATION* Height: 170.2cm ((67in) ) S/D Pressure: 116 / 71 Weight: 86.2kg ((189.6lb) ) BSA: 2.04m^2 Test start time: 09:30 AM. Test stop time: 10:30 AM. PERFORMING Unknown ORDERING Laura Urbina REFERRING Laura Urbina PERFORMING [facility] HOSTED SERVICES ANALYST RT Stan (R)(CT)ALMAS *PROCEDURE DATA* Procedure information: The patient was identified by two identifiers. This study was interpreted by [facility]. Pertinent images and digital data are archived for permanent storage and are available for subsequent review. Comparison was made to the study of 08/09/2015. Study status: Routine. Transthoracic echocardiography. M-mode, complete 2D, complete spectral Doppler, and color Doppler. A Transthoracic Echocardiogram was performed. Scanning was performed from the parasternal, apical, subcostal, and suprasternal notch acoustic windows. Images were obtained using an [id number] cardiac ultrasound machine. Image quality was adequate. Study completion: The patient tolerated the procedure well. History: PMH: Tachycardia. *CARDIAC ANATOMY* Left ventricle: The cavity size was normal. Systolic function was normal. The estimated ejection fraction was 60-65%. Doppler parameters are consistent with high ventricular filling pressure. Aortic valve: Doppler: There was no stenosis. There was no regurgitation. VTI ratio of LVOT to aortic valve: 0.79. Valve area (VTI): 2.1cm^2. Indexed valve area (VTI): 1cm^2/m^2. Peak velocity ratio of LVOT to aortic valve: 0.71. Valve area (Vmax): 1.9cm^2. Indexed valve area (Vmax): 0.9cm^2/m^2. Mean velocity ratio of LVOT to aortic valve: 0.69. Valve area (Vmean): 1.9cm^2. Indexed valve area (Vmean): 0.9cm^2/m^2. Mean gradient (S): 3.9mm Hg. Peak gradient (S): 6.9mm Hg. Aorta: Aortic root: The aortic root was normal in size. Ascending aorta: The ascending aorta was normal in size. Mitral valve: Doppler: There was no evidence for stenosis. There was mild regurgitation. Valve area by pressure half-time: 4.4cm^2. Indexed valve area by pressure half-time: 2.1cm^2/m^2. Peak gradient (D): 5.5mm Hg. Left atrium: The atrium was normal in size. Atrial septum: No defect or patent foramen ovale was identified. Right ventricle: The cavity size was normal. Wall thickness was normal. Systolic function was normal. Pulmonic valve: Doppler: There was no evidence for stenosis. There was no significant regurgitation. Tricuspid valve: Doppler: There was mild regurgitation. Pulmonary artery: Poorly visualized. Pulmonary systolic pressure was in the range of 25mm Hg to 35mm Hg. Right atrium: The atrium was normal in size. Pericardium: A prominent pericardial fat pad was present. There was no pericardial effusion. Systemic veins: Inferior vena cava: Well visualized. The vessel was patent and normal in size. The respirophasic diameter changes were in the normal range (greater than or equal to 50%), consistent with normal central venous pressure. Baseline ECG: Normal sinus rhythm. Measurements Left ventricle Value Reference LV ID, ED, PLAX 4.5 cm 3.5 - 6.0 LV ID, ES, PLAX 3.0 cm 2.1 - 4.0 LV PW thickness, ED, PLAX 0.9 cm LV end-diastolic volume, 1-p A2C 75 ml LV ejection fraction, 1-p A2C 53 % LV end-diastolic volume, 1-p A4C 56 ml LV ejection fraction, 1-p A4C 55 % LV e', lateral 0.089 m/sec LV E/e', lateral 13 LV e', medial 0.079 m/sec LV E/e', medial 15 LV e', average 0.084 m/sec LV E/e', average 14 Ventricular septum Value Reference IVS thickness, ED, PLAX 1.0 cm LVOT Value Reference LVOT ID, A-P 1.8 cm LVOT area 2.7 cm^2 LVOT peak velocity, S 0.93 m/sec LVOT mean velocity, S 0.66 m/sec LVOT VTI, S 22.2 cm LVOT peak gradient, S 3.5 mm Hg LVOT mean gradient, S 1.9 mm Hg Stroke volume (SV), LVOT DP 59 ml Stroke index (SV/bsa), LVOT DP 29 ml/m^2 Aortic valve Value Reference Aortic valve peak velocity, S 1.3 m/sec Aortic valve mean velocity, S 0.95 m/sec Aortic valve VTI, S 28.0 cm Aortic mean gradient, S 3.9 mm Hg Aortic peak gradient, S 6.9 mm Hg VTI ratio, LVOT/AV 0.79 Aortic valve area, VTI 2.1 cm^2 Velocity ratio, peak, LVOT/AV 0.71 Aortic valve area, peak velocity 1.9 cm^2 Velocity ratio, mean, LVOT/AV 0.69 Aortic valve area, mean velocity 1.9 cm^2 Aortic valve area/bsa, mean velocity 0.9 cm^2/m^2 Aorta Value Reference Aortic root ID, ED 2.6 cm Ascending aorta ID, A-P, S 2.7 cm Left atrium Value Reference LA ID, A-P, ES 3.2 cm LA ID/bsa, A-P 1.6 cm/m^2 <=2.2 LA area, ES, A4C 19.9 cm^2 8.8 - 23.4 LA area, ES, A2C 16 cm^2 LA volume, ES, 2-p 50 ml LA volume/bsa, ES, 2-p 24 ml/m^2 LA/aortic root ratio 1.26 Mitral valve Value Reference Mitral E-wave peak velocity 1.17 m/sec Mitral A-wave peak velocity 1.03 m/sec Mitral deceleration time 173 ms 150 - 230 Mitral pressure half-time 50 ms Mitral peak gradient, D 5.5 mm Hg Mitral E/A ratio, peak 1.14 Mitral valve area, PHT, DP 4.4 cm^2 Pulmonary veins Value Reference Pulmonary vein peak velocity, S 0.61 m/sec Pulmonary vein peak velocity, D 0.44 m/sec Pulmonary vein velocity ratio, peak, 1.37 S/D Pulmonary vein A-wave reversal peak 0.31 m/sec velocity Tricuspid valve Value Reference Tricuspid regurg peak velocity 2.6 m/sec Tricuspid peak RV-RA gradient 26.4 mm Hg Right atrium Value Reference RA area, ES, A4C 13.7 cm^2 8.3 - 19.5 Legend: (L) and (H) jelly values outside specified reference range. I have personally reviewed the images and have reviewed and edited the reported findings. Electronically signed by Сергей Mcconnell MD 07/22/2018 16:40
== END 2018-07-22 00:37 ==
PROVIDERS: PCP Family Medicine; Visit Provider Family Medicine
DX: R00.0 Tachycardia, unspecified (principal); I34.0 Nonrheumatic mitral (valve) insufficiency; R91.1 Solitary pulmonary nodule; E04.2 Nontoxic multinodular goiter; J43.9 Emphysema, unspecified
CPT/HCPCS: 93306; 71260; J3490

== ENCOUNTER 2018-09-25 17:03 | Emergency (ER) | payer MEDICARE, MEDICAID, SELFPAY ==
[2018-09-25 16:58] VITALS: BP 131/83; PULSE 100; RESP 18; TEMP 36.8; O2SAT 95
--- NOTE | 2018-09-25 17:20 | DI.CT_ITS ---
SYMPTOM/DIAGNOSIS: CHEST PAIN,H/O PE, ? PE, LT RIB PAIN, ?FX PE CHEST CTA: CT angiography was performed with multi slice acquisition and multi planar and 3D reconstruction. CT scan of the chest was performed according to the pulmonary embolus protocol. Comparison examinations are 04/27/16 and 07/22/18. There is no evidence of a pulmonary embolus. The thoracic aorta is of normal caliber. There is no aneurysm or dissection present. Heart size is within normal limits. No significant pericardial effusion is seen. No findings to suggest right ventricular dysfunction are present. No significant thoracic adenopathy is seen. No pleural effusion or pneumothorax is identified. The lungs show stable scarring or atelectasis bilaterally. There are also stable emphysematous changes in the lungs. There is a 5 mm. nodule in the right upper lobe which has been stable dating back to 2016. No new pulmonary nodules are seen. No acute infiltrates are present. Upper abdominal images are grossly unremarkable. Degenerative changes are seen in the spine. There is a stable right thyroid nodule. IMPRESSION: 1. No evidence of acute pulmonary embolus, thoracic aortic dissection or aneurysm. 2. Stable pulmonary emphysema. 3. Stable 5 mm. pulmonary nodule in the right upper lobe. This is unchanged dating to 04/27/16. Follow up as clinically appropriate. 4. Stable bilateral scarring or atelectasis.
--- NOTE | 2018-09-25 17:24 | ED.GENADUL_ITS ---
Discharge Plan Disposition Patient Disposition: HOME Condition: Stable Discharge Details Chief Complaint: Chest Pain Clinical Impression: Chest wall pain, Alcohol intoxication Reason For Visit: [place] Primary Care Provider: Laura Renae ED Provider: Sommer Nixon Home Meds and New Rx's Prescriptions: Continued cyclobenzaprine 10 MG tablet 10 mg PO BID RF: 0 trazodone 50 MG tablet 50 mg PO HS RF: 0 venlafaxine [Effexor XR] 150 MG capsule,extended release 24hr 150 mg PO DAILY RF: 0 Lyrica 100 MG capsule 150 mg PO TID RF: 0 naproxen 500 MG tablet 500 mg PO BID Qty: 30 RF: 0 lisinopril 2.5 MG tablet 2.5 mg PO HS RF: 0 meclizine 25 mg Tablet 25 mg PO TID PRN (Reason: Vertigo) RF: 0 Combivent Respimat 20-100 mcg/actuation Mist 20 - 100 % RF: 0 bupropion HCl [Wellbutrin XL] 300 mg Tablet Extended Release 24 Hr 300 mg PO DAILY RF: 0 benzonatate 200 mg Capsule 200 mg PO TID Qty: 15 RF: 0 Discharge Instructions Instructions: Alcohol Intoxication (ED), Chest Wall Pain (ED) Additional Instructions: Alternate Tylenol and Motrin for pain. Alternate ice and heat to the affected area several times daily for 20-minute at a time. Follow-up with a primary care doctor in 1 week for reevaluation. Return immediately to the emergency department any worsening or new concerning symptoms. Discharge Data Discharge Date/Time-TO BE ENTERED AT DEPARTURE: 09/25/18 21:05 Discharge Physician: Sommer Nixon Medical Decision Making 58-year-old female presents with left anterior lateral rib pain that is worse with movement, deep breath and palpation since 3 PM today. She did have a fall today in which she became dizzy and slipped hitting her back on the floor. She states she was drinking alcohol at the time but she denies any head injury, headache, back pain, abdominal pain. She is a daily alcohol drinker. Vitals within normal limits. No evidence of head trauma, C-spine/T-spine/L-spine nontender. She does have tenderness to palpation of her left anterior lateral rib cage under left breast and pain reproducible with movement. Abdomen soft and nontender. Lungs clear to auscultation. Patient has a history of pulmonary embolism several years ago treated with Coumadin but not for the past several years. Vitals within normal limits. Presentation appears likely consistent with musculoskeletal chest wall pain, costochondritis, rib fracture rather than acute cardiac or pulmonary etiology. EKG notes a rate of 95, sinus, no acute ST findings. Will place an IV, bolus IV fluids, labs, CT chest to rule out PE and give a dose of Toradol. 1945 --labs reviewed and unremarkable. CT chest negative for PE. Patient states she feels much better after Toradol. Alcohol level noted to be 345. She appears clinically sober. Patient came in by ambulance. Will attempt to see if she can get a ride home. Patient offered to go to detox [facility] the [facility] center but she is declining. She will attempt to get a ride with her [id number]. Staff notified of patient's plan for obtaining a ride, and plan for discharge home once ride with responsible republican available. Medical Records Medical records reviewed: Yes I reviewed the patient's medical records. Imaging Data Radiologic Study: Radiologist's impression: CT Angiography Chest With Contrast EXAM DATE/TIME: 09/25/2018 5:22 PM FINDINGS: Pulmonary arteries: Normal. No pulmonary emboli. Aorta: Mild calcific atherosclerotic disease of the aorta and its main branches. No acute aortic pathology. Aorta is otherwise normal in course and caliber. Thyroid: A 1.0 cm right thyroid lobe hypodense septated nodule is incidentally noted. Lungs: Stable atelectasis/parenchymal scarring in the bilateral lung bases. Stable diffuse centrilobular emphysema. Stable 5 mm nodule in the right upper lobe on image 38 series 4. No acute interstitial or airspace disease grossly noted. Pleural space: Normal. No pneumothorax. No pleural effusion. Heart: Normal. No cardiomegaly. No pericardial effusion. Lymph nodes: Unremarkable. No enlarged lymph nodes. Bones/joints: No acute skeletal pathology. Mild multilevel degenerative changes of the spine, as manifested by multilevel anterior osteophytes and multilevel decrease in intervertebral disc space. Soft tissues: Unremarkable. IMPRESSION: 1. Negative for pulmonary emboli. 2. Stable pulmonary emphysema. 3. Stable bilateral basal atelectasis or scarring. 4. Stable 5 mm nodule in the right upper lobe. For patients at low risk (minimal or absent history of smoking and of other known risk factors), no routine follow-up is indicated. For patients at high risk (history of smoking or of other known risk factors), consider optional CT at 12 months. (Mac et al., Fleischner Society, 2017) 5. Stable right thyroid lobe hypodense nodule for which further evaluation with ultrasound is recommended if not already performed. Lab Data Lab results reviewed: Yes I reviewed the patient's lab results. Laboratory Tests Range/Units 09/25/18 09/25/18 09/25/18 17:35 17:35 17:35 WBC (4.4-10.8) k/cumm 5.66 RBC (4.00-5.20) m/cumm 4.43 Hgb (12.0-15.5) g/dL 14.0 Hct (36.0-46.0) % 42.1 MCV (80-95) fL 95.0 MCH (27.0-33.0) pg 31.6 MCHC (32.0-36.0) g/dL 33.3 RDW (11.7-14.6) % 13.9 Plt Count (130-400) x1000/uL 237 MPV (8.0-11.0) fL 10.1 Immature Gran % 0.9 Neutrophils % 50.4 Lymphocytes % 40.8 Monocytes % 6.2 Eosinophils % 1.2 Basophils % 0.5 Absolute Neutrophils (1.2-6.7) k/cumm 2.85 Absolute Lymphocytes (1.2-3.4) k/cumm 2.31 Absolute Monocytes (0.11-0.7) k/cumm 0.35 Absolute Eosinophils (0.0-0.7) k/cumm 0.07 Absolute Basophils (0.0-0.2) k/cumm 0.03 Sodium (136-145) mmol/L 145 Potassium (3.5-5.1) mmol/L 4.3 Chloride (98-107) mmol/L 105 Carbon Dioxide (21.0-32.0) mmol/L 28.3 Anion Gap (3-11) mmol/L 11.7 H BUN (7-18) mg/dL 14 Creatinine (0.55-1.02) mg/dL 0.99 Estimated GFR/1.73 m2 (mL/min/1.73m2) 57.22 Glucose (70-100) mg/dL 80 Calcium (8.5-10.1) mg/dL 8.8 Magnesium (1.8-2.4) mg/dL 2.1 Total Bilirubin (0.2-1.0) mg/dL 0.2 AST (15-37) U/L 28 ALT (12-78) U/L 22 Alkaline Phosphatase (46-116) U/L 84 Troponin I (0.00-0.06) ng/mL < 0.02 Total Protein (6.4-8.2) g/dL 7.7 Albumin (3.4-5.0) g/dL 3.6 Ethyl Alcohol (<3) mg/dL 345.2 ECG Data Attestation: I personally reviewed and interpreted this ECG (s) as follows: Interpretation: Rate of 95, sinus, no acute ST elevation or depression. QTc 452. QRS 80 HPI General Mode of arrival: ambulatory . Date/Time Provider Initiated Documentation: 09/25/18 18:27 . Limitations to Documentation: no limitations . Information obtained by: patient . HPI Narrative: Patient is a 58-year-old female with a history of daily alcohol use who presents to the ED with complaint of left rib pain since 3 PM today. Patient states she did have a slip and fall today in which she opened the door suddenly and then felt dizzy and fell down. She denies hitting her left ribs. She states her left rib pain under her left breast is worse with deep breath, movement or coughing. She denies any fever, shortness of breath. She states she has a chronic cough. Related Data Home Medications Medication Instructions Recorded Confirmed Lyrica 150 mg PO TID 05/26/15 09/25/18 cyclobenzaprine 10 mg PO BID 05/26/15 09/25/18 trazodone 50 mg PO HS 05/26/15 09/25/18 venlafaxine [Effexor XR] 150 mg PO DAILY 05/26/15 09/25/18 naproxen 500 mg PO BID #30 tablet 10/06/15 09/25/18 lisinopril 2.5 mg PO HS 09/20/17 09/25/18 Combivent Respimat 20 - 100 % 05/06/18 bupropion HCl [Wellbutrin XL] 300 mg PO DAILY 05/06/18 09/25/18 meclizine 25 mg PO TID PRN 05/06/18 09/25/18 benzonatate 200 mg PO TID #15 cap 05/09/18 09/25/18 Previous Rx's Medication Instructions Recorded naproxen 500 mg PO BID #30 tablet 10/06/15 benzonatate 200 mg PO TID #15 cap 05/09/18 Allergies Allergy/AdvReac Type Severity Reaction Status Date / Time No Known Allergies Allergy Unverified 09/25/18 17:04 General Stated Complaint: Chest Pain LILLY: 2 Review of Systems Review of Systems All systems reviewed & are unremarkable except as noted in HPI and below Constitutional Reports as per HPI, Denies chills and Denies fever(s) Eyes Denies blurry vision ENT Denies dizziness, Denies sore throat and Denies throat swelling Cardiovascular Reports chest pain and Denies dyspnea Respiratory Denies cough and Denies dyspnea Gastrointestinal Denies abdominal pain, Denies diarrhea and Denies vomiting Genitourinary Denies hematuria and Denies dysuria Musculoskeletal Denies back pain and Denies numbness Integumentary/Breasts Denies lesions and Denies rash Neurologic Denies dizziness, Denies focal weakness and Denies numbness Allergic/Immunologic Denies throat swelling [facility] Medical History Pneumonia (Acute) COPD (chronic obstructive pulmonary disease) (Chronic) Lumbago with sciatica (Chronic) Chronic back pain (Acute) Depression with anxiety (Acute) Hx pulmonary embolism (Acute) Inappropriate sinus tachycardia (Acute) Insomnia (Acute) HTN (hypertension) (Chronic) Surgical History History of radical hysterectomy (Acute) Social History household members: none housing: apartment lives independently: Yes number of children: 1 number of grandchildren: 3 current occupation: Disabled Smoking and Tabacco status: Current every day Tobacco: How many years used: 40 how long ago did patient quit smokin years alcohol intake: current alcohol intake frequency: 0-2 drinks per day details: drinks socially substance use type: does not use Exam Const General: cooperative, healthy appearing and no acute distress HENMT Head: normal to inspection Face and sinus: normal facial exam Eyes General: appearance normal, both eyes and all related structures Pupils: PERRL EOM: EOM intact bilaterally Neck Neck: normal visual inspection and No submandibular swelling Lymphatic: no lymphadenopathy noted Chest Chest: normal inspection of the chest and tenderness rib (Left anterior lateral ribs under breast) Resp Effort & Inspection: normal respiratory effort and able to speak in complete s entences Auscultation: clear to auscultation bilaterally Cardio Rate: regular rate Rhythm: regular rhythm GI Inspection: normal to inspection Palpation: soft, not firm, not rigid and nontender Auscultation: normal bowel sounds Back/Spine/Pelvis Cervical Spine: No cervical spinal tenderness Thoracic/Lumbar Spine: thoracic and lumbar spine normal to inspection, No thoracic spinal tenderness and No lumbar spinal tenderness Pelvis: no pain with anterior-posterior compression Skin General skin exam: no rashes or lesions noted Neuro General: alert, awake and oriented x3 Cognition: normal cognition Speech: speech normal Motor: muscle tone normal throughout Sensory Exam: no sensory deficits noted Extrem General: normal to inspection, full ROM, normal capillary refill, no calf tenderness bilaterally and no edema Psych Appearance: grossly normal Mental Status: mental status grossly normal Speech and Movement: speech and movement normal Affect: normal affect Course Vital Signs Temperature 98.2 F 09/25/18 16:58 Pulse 100 H 09/25/18 16:58 Respiratory Rate 18 09/25/18 16:58 Blood Pressure 131/83 09/25/18 16:58 Pulse Oximetry 95 09/25/18 16:58 Temperature 98.2 F 09/25/18 16:58 Temperature Source Skin 09/25/18 16:58 Pulse 100 H 09/25/18 16:58 Respiratory Rate 18 09/25/18 16:58 Blood Pressure 131/83 09/25/18 16:58 Pulse Oximetry 95 09/25/18 16:58 Oxygen Delivery Method Room Air 09/25/18 16:58 Oxygen Flow Rate 0 09/25/18 16:58 Pain Level 6 09/25/18 16:58
[2018-09-25 17:43] LABS: Abs Immature Grans 0.05 k/cumm (0.0-0.09); Absolute Basophil Count 0.03 k/cumm (0.0-0.2); Absolute Eosinophil Count 0.07 k/cumm (0.0-0.7); Absolute Lymphocyte Count 2.31 k/cumm (1.2-3.4); Absolute Monocyte Count 0.35 k/cumm (0.11-0.7); Absolute Neutrophil Count 2.85 k/cumm (1.2-6.7); Basophils % 0.5; Eosinophils % 1.2; HCT 42.1 % (36.0-46.0); Immature Grans % 0.9; Lymphocytes % 40.8; Mean Corp. HGB Concentration 33.3 g/dL (32.0-36.0); Mean Corpuscular Hemoglobin 31.6 pg (27.0-33.0); Mean Platelet Volume 10.1 fL (8.0-11.0); Monocytes % 6.2; Neutrophils % 50.4; Platelet Count 237 x1000/uL (130-400); RBC 4.43 m/cumm (4.00-5.20); RBC Distribution Width 13.9 % (11.7-14.6); White Blood Cell Count 5.66 k/cumm (4.4-10.8)
[2018-09-25] MEDS: Ketorolac 30 MG/ML VIAL IVP (17:44)
[2018-09-25 17:50] VITALS: RESP 18
[2018-09-25 17:52] VITALS: BP 128/80; PULSE 101; RESP 18; O2SAT 94
[2018-09-25 18:05] LABS: ALT 22 U/L (12-78); AST 28 U/L (15-37); Albumin 3.6 g/dL (3.4-5.0); Alkaline Phosphatase 84 U/L (46-116); Anion Gap 11.7 mmol/L (3-11); BUN 14 mg/dL (7-18); Bilirubin, Total 0.2 mg/dL (0.2-1.0); CO2 28.3 mmol/L (21.0-32.0); CREATININE 0.99 mg/dL (0.55-1.02); Calcium 8.8 mg/dL (8.5-10.1); Chloride 105 mmol/L (98-107); Estimated GFR 57.22 (mL/min/1.73m2); Glucose 80 mg/dL (70-100); Magnesium 2.1 mg/dL (1.8-2.4); Potassium 4.3 mmol/L (3.5-5.1); Sodium 145 mmol/L (136-145); Total Protein 7.7 g/dL (6.4-8.2)
[2018-09-25 18:09] LABS: Troponin I < 0.02 ng/mL (0.00-0.06)
[2018-09-25] MEDS: Normal Saline Flush 10 ML SYR IVP (18:44)
[2018-09-25] MEDS: Omnipaque 350 MG/ML 100 ML BTL IJ (18:44)
--- NOTE | 2018-09-25 19:19 | DI.VRAD_ITS ---
EXAM: CT Angiography Chest With Contrast EXAM DATE/TIME: 09/25/2018 5:22 PM CLINICAL HISTORY: 58 years old, female; Signs and symptoms; Other: Chest pain, h/o pe, R/O pe; Additional info: R/O rib fractures, recent fall TECHNIQUE: Axial computed tomographic angiography images of the chest with intravenous contrast using CT angiography protocol. All CT scans at this facility use at least one of these dose optimization techniques: automated exposure control; mA and/or kV adjustment per patient size (includes targeted exams where dose is matched to clinical indication); or iterative reconstruction. Coronal and sagittal reformatted images were created and reviewed. MIP reconstructed images were created and reviewed. CONTRAST: Contrast Material: 100 ml of Omnipaque 350; Contrast Route: IV COMPARISON: CT chest w 07/22/2018 8:29 AM FINDINGS: Pulmonary arteries: Normal. No pulmonary emboli. Aorta: Mild calcific atherosclerotic disease of the aorta and its main branches. No acute aortic pathology. Aorta is otherwise normal in course and caliber. Thyroid: A 1.0 cm right thyroid lobe hypodense septated nodule is incidentally noted. Lungs: Stable atelectasis/parenchymal scarring in the bilateral lung bases. Stable diffuse centrilobular emphysema. Stable 5 mm nodule in the right upper lobe on image 38 series 4. No acute interstitial or airspace disease grossly noted. Pleural space: Normal. No pneumothorax. No pleural effusion. Heart: Normal. No cardiomegaly. No pericardial effusion. Lymph nodes: Unremarkable. No enlarged lymph nodes. Bones/joints: No acute skeletal pathology. Mild multilevel degenerative changes of the spine, as manifested by multilevel anterior osteophytes and multilevel decrease in intervertebral disc space. Soft tissues: Unremarkable. IMPRESSION: 1. Negative for pulmonary emboli. 2. Stable pulmonary emphysema. 3. Stable bilateral basal atelectasis or scarring. 4. Stable 5 mm nodule in the right upper lobe. For patients at low risk (minimal or absent history of smoking and of other known risk factors), no routine follow-up is indicated. For patients at high risk (history of smoking or of other known risk factors), consider optional CT at 12 months. (Mac et al., Fleischner Society, 2017) 5. Stable right thyroid lobe hypodense nodule for which further evaluation with ultrasound is recommended if not already performed. Dictated and Authenticated by: Chandan Franco MD. Ordering:NORMAN Novoa MD
[2018-09-25 19:22] LABS: ETHANOL BLOOD 345.2 mg/dL (<3)
[2018-09-25 20:13] VITALS: BP 125/81; PULSE 96; RESP 16; TEMP 36.6; O2SAT 96
--- NOTE | 2018-09-25 20:15 | NUR.NOTE ---
Nursing Note: Pt dressed in her clothing stating she wants to go home. allowed this RN to take a set of vital signs. no acute distress
== END 2018-09-25 21:05 | disposition home or self-care (01) ==
PROVIDERS: Emergency Provider Physician Assistant; PCP Family Medicine
DX: R07.81 Pleurodynia (principal); F10.120 Alcohol abuse with intoxication, uncomplicated; I10 Essential (primary) hypertension; J44.9 Chronic obstructive pulmonary disease, unspecified; W01.0XXA Fall on same level from slipping, tripping and stumbling without subsequent striking against object, initial encounter; Z87.891 Personal history of nicotine dependence
CPT/HCPCS: 36415; 71275; 80053; 93005; 96374; 99285; 80320; 83735; 84484; 85025; 93010; J1885; J3490

== ENCOUNTER 2019-06-10 08:46 | Emergency (ER) | payer MEDICARE, MEDICAID, SELFPAY ==
[2019-06-10 08:52] VITALS: BP 136/83; PULSE 110; RESP 18; TEMP 35.9; O2SAT 97
--- NOTE | 2019-06-10 09:08 | ED.GENADUL_ITS ---
Discharge Plan Disposition Patient Disposition: HOME Condition: Stable Discharge Details Chief Complaint: DentalOral Clinical Impression: Dental infection, Facial infection Primary Care Provider: Laura Renae ED Provider: Nelsy North Home Meds and New Rx's Prescriptions: New amoxicillin-pot clavulanate [Augmentin] 875-125 mg tablet 1 tab PO BID Qty: 13 RF: 0 Continued cyclobenzaprine 10 MG tablet 10 mg PO BID RF: 0 trazodone 50 MG tablet 50 mg PO HS RF: 0 venlafaxine [Effexor XR] 150 MG capsule,extended release 24hr 150 mg PO DAILY RF: 0 Lyrica 100 MG capsule 150 mg PO TID RF: 0 naproxen 500 MG tablet 500 mg PO BID Qty: 30 RF: 0 lisinopril 2.5 MG tablet 2.5 mg PO HS RF: 0 meclizine 25 mg Tablet 25 mg PO TID PRN (Reason: Vertigo) RF: 0 Combivent Respimat 20-100 mcg/actuation Mist 20 - 100 % RF: 0 bupropion HCl [Wellbutrin XL] 300 mg Tablet Extended Release 24 Hr 300 mg PO DAILY RF: 0 benzonatate 200 mg Capsule 200 mg PO TID Qty: 15 RF: 0 Discharge Instructions Instructions: Amoxicillin/Clavulanate Potassium (By mouth), Dental Abscess (ED), Cellulitis (ED) Additional Instructions: Please return immediately to the emergency department if you develop any new or worsening symptoms or if you become otherwise concerned. It is extremely important that you call as soon as possible to make an appointment to be seen in follow-up for this visit by your primary care doctor and also by a dentist. Referrals: Laura Renae [Primary Care Provider] - Medical Decision Making Nedra Ellis is a 58 y/o woman with history of hypertension, COPD, pulmonary embolism in the past no longer on anticoagulation, known inappropriate sinus tachycardia who presented to the emergency department with dental pain over the past week, facial pain and swelling since waking up this morning. On exam patient is very well and nontoxic appearing. Tooth #6 is broken with erythema of the surrounding gingiva without apparent abscess, there is edema of the face from the right maxilla through the infraorbital area without periorbital edema. Extraocular movements are intact without pain. Patient is handling secretions without issue. Concern for dental infection with possible progression into bony structures. Exam/history is not consistent with sepsis, impending airway compromise, meningitis, other acute emergent limb shortening process. Plan for IV fluid hydration, screening labs, CT face with contrast. Will monitor and reassess. CT shows soft tissue swelling of cheek without abscess or fluid collection. Labs reviewed, WBC normal. Plan for Augmentin. Percocet x1 provided for take home to help with sleep tonight, had a lengthy discussion with patient regarding safe opiate use. I had a lengthy discussion with the patient regarding return to emergency department precautions, home care, and importance of outpatient follow-up with a dentist and also with her primary care doctor dental list was provided, care management contacted to help facilitate dental appointment. Patient verbalized understanding of the plan was amenable. All questions were answered. Patient was discharged home with clear plan for outpatient follow-up. Medical Records Medical records reviewed: Yes I reviewed the patient's medical records. Imaging Data Radiologic Study: Attestation: I personally reviewed and interpreted this imaging study as follows: Radiologist's impression: EXAM: CT FACIAL W CLINICAL HISTORY: dental infection, edema and pain right face TECHNIQUE: Post contrast COMPARISON: CERVICAL SPINE WITHOUT CONTRA from 10/06/2015 CHEST WITHOUT CONTRAST from 04/27/2016 CT chest PE CTA from 09/25/2018 FINDINGS: There is no evidence of fracture. There is mild to moderate mucosal thickening along the right maxillary sinus. The remaining sinuses as well as mastoid air cells appear clear. The visualized portions of the brain are unremarkable. The orbits appear intact. There is soft tissue swelling and stranding in the fat over the right cheek. There is some artifact from dental work. No drainable abscess or fluid collection is seen. No mass is identified. No dental abscesses are seen. The parotid and submandibular glands are unremarkable. No adenopathy is seen. There is mild calcific plaque at the common carotid bulbs but no significant internal carotid artery stenosis. The vertebral arteries and visualized intracranial vessels are unremarkable. The thyroid is partially included on the exam. There is a stable appearing right thyroid nodule. IMPRESSION: Soft tissue swelling over the right cheek. No evidence of fracture, abscess or fluid collection. Mucosal thickening of the right maxillary sinus. Lab Data Lab results reviewed: Yes I reviewed the patient's lab results. Labs: Laboratory Tests Range/Units 06/10/19 06/10/19 10:00 10:00 WBC (4.4-10.8) k/cumm 7.84 RBC (4.00-5.20) m/cumm 4.08 Hgb (12.0-15.5) g/dL 12.8 Hct (36.0-46.0) % 38.2 MCV (80-95) fL 93.6 MCH (27.0-33.0) pg 31.4 MCHC (32.0-36.0) g/dL 33.5 RDW (11.7-14.6) % 14.3 Plt Count (130-400) x1000/uL 252 MPV (8.0-11.0) fL 10.1 Immature Gran % 0.8 Neutrophils % 72.7 Lymphocytes % 15.7 Monocytes % 8.4 Eosinophils % 2.0 Basophils % 0.4 Absolute Neutrophils (1.2-6.7) k/cumm 5.70 Absolute Lymphocytes (1.2-3.4) k/cumm 1.23 Absolute Monocytes (0.11-0.7) k/cumm 0.66 Absolute Eosinophils (0.0-0.7) k/cumm 0.16 Absolute Basophils (0.0-0.2) k/cumm 0.03 Sodium (136-145) mmol/L 139 Potassium (3.5-5.1) mmol/L 4.9 Chloride (98-107) mmol/L 104 Carbon Dioxide (21.0-32.0) mmol/L 25.5 Anion Gap (3-11) mmol/L 9.5 BUN (7-18) mg/dL 14 Creatinine (0.55-1.02) mg/dL 0.90 Estimated GFR/1.73 m2 (mL/min/1.73m2) >= 60.00 Glucose (70-100) mg/dL 95 Calcium (8.5-10.1) mg/dL 9.0 Total Bilirubin (0.2-1.0) mg/dL 0.5 AST (15-37) U/L 13 L ALT (14-59) U/L 15 Alkaline Phosphatase (46-116) U/L 98 Total Protein (6.4-8.2) g/dL 7.2 Albumin (3.4-5.0) g/dL 3.7 HPI General Mode of arrival: ambulatory . Date/Time Provider Initiated Documentation: 06/10/19 08:56 . Limitations to Documentation: no limitations . Information obtained by: patient, RN notes reviewed and old records reviewed . HPI Narrative: Nedra Ellis is a 4-year-old woman with history of hypertension, COPD, chronic back pain, inappropriate tachycardia presenting to the emergency department with dental and facial pain. Patient reports that she a proximally 1 year ago she broke 1 of her upper canines. Patient reports that approximately 1 week ago she started to have pain around the area of the broken tooth. Patient reports that she woke up this morning and pain was much more severe and in her right face into the infraorbital region. She also had swelling of the right face in the same area as pain. She denies any redness of the skin or any other rash. She denies any other pain other than chronic back pain that is unchanged, denies fevers, cough, shortness of breath, vomiting, diarrhea, numbness, weakness, visual states her primary care doctor has tried to put her medications to lower her heart rate without success. Related Data Home Medications Medication Instructions Recorded Confirmed Lyrica 150 mg PO TID 05/26/15 09/25/18 cyclobenzaprine 10 mg PO BID 05/26/15 09/25/18 trazodone 50 mg PO HS 05/26/15 09/25/18 venlafaxine [Effexor XR] 150 mg PO DAILY 05/26/15 09/25/18 naproxen 500 mg PO BID #30 tablet 10/06/15 09/25/18 lisinopril 2.5 mg PO HS 09/20/17 09/25/18 Combivent Respimat 20 - 100 % 05/06/18 bupropion HCl [Wellbutrin XL] 300 mg PO DAILY 05/06/18 09/25/18 meclizine 25 mg PO TID PRN 05/06/18 09/25/18 benzonatate 200 mg PO TID #15 cap 05/09/18 09/25/18 amoxicillin-pot clavulanate 1 tab PO BID #13 tab 06/10/19 [Augmentin] Previous Rx's Medication Instructions Recorded naproxen 500 mg PO BID #30 tablet 10/06/15 benzonatate 200 mg PO TID #15 cap 05/09/18 amoxicillin-pot clavulanate 1 tab PO BID #13 tab 06/10/19 [Augmentin] Allergies Allergy/AdvReac Type Severity Reaction Status Date / Time No Known Allergies Allergy Unverified 06/10/19 08:58 General Stated Complaint: DentalOral LILLY: 4 Review of Systems Narrative: Constitutional: denies fevers Eyes: denies eye pain, vision changes ENT: denies sore throat, intraoral swelling, difficulty swallowing, voice change, reports facial pain, dental pain Cardiovascular: denies chest pain Respiratory: denies SOB, cough GI: denies abdominal pain, vomiting, diarrhea : denies flank pain MSK: denies back pain, neck pain, arthralgias, myalgias Skin: denies rash Neuro: denies headaches, numbness, weakness PFS Medical History Chronic back pain (Acute) COPD (chronic obstructive pulmonary disease) (Chronic) Depression with anxiety (Acute) HTN (hypertension) (Chronic) Hx pulmonary embolism (Acute) Inappropriate sinus tachycardia (Acute) Insomnia (Acute) Lumbago with sciatica (Chronic) Pneumonia (Acute) Social History Smoking/Tobacco Use Status: Former Tobacco Use Tobacco: How many years used: 40 Alcohol Intake: current Alcohol Intake frequency: 0-2 drinks per day Details: drinks socially Drug use: Never Substance use type: does not use Household members: none Housing: apartment Number of Children: 1 number of grandchildren: 3 current occupation: Disabled Do you feel safe at home: Yes Do you feel safe in your relationship?: Yes Exam Narrative Exam Narrative: Constitutional: well and [id number], pleasant, conversing normally HENT: head atraumatic/normocephalic, mucous membranes moist, poor dentition throughout, tooth 6 broken with erythema of the surrounding gingiva without apparent abscess, edema of the right face from maxilla through right infraorbital area, no erythema, no induration, no periorbital edema, normal voice, no drooling or pooling of secretions, no other intraoral lesion, no intraoral edema, no elevation of the tongue Eyes: conjunctiva normal, sclera normal, pupils 3mm b/l, extraocular movements intact without pain or nystagmus Neck: no stridor, normal ROM, trachea midline, no lymphadenopathy Resp: normal work of breathing, LCTAB Cardio: Tachycardic rate at 100, normal rhythm, no murmur appreciated Skin: warm, dry, normal color, no rash Neuro: alert, not altered, grossly non-focal, normal tone Ext: no edema, moving all extremities equally Psych: normal mood, normal affect, normal behavior Course Vital Signs Vital signs: Vital Signs Temperature 35.9 C L 06/10/19 08:52 Pulse 110 H 06/10/19 08:52 Respiratory Rate 18 06/10/19 08:52 Blood Pressure 136/83 06/10/19 08:52 Pulse Oximetry 97 06/10/19 08:52 Temperature 35.9 C L 06/10/19 08:52 Temperature Source Tympanic 06/10/19 08:52 Pulse 110 H 06/10/19 08:52 Respiratory Rate 18 06/10/19 08:52 Respiratory Effort Non-Labored 06/10/19 08:55 Blood Pressure 136/83 06/10/19 08:52 Blood Pressure Position Sitting 06/10/19 08:52 Pulse Oximetry 97 06/10/19 08:52 Oxygen Delivery Method Room Air 06/10/19 08:52 Oxygen Flow Rate 0 06/10/19 08:52 Pain Level 10 06/10/19 08:55
[2019-06-10 10:13] LABS: Abs Immature Grans 0.06 k/cumm (0.0-0.09); Absolute Basophil Count 0.03 k/cumm (0.0-0.2); Absolute Eosinophil Count 0.16 k/cumm (0.0-0.7); Absolute Lymphocyte Count 1.23 k/cumm (1.2-3.4); Absolute Monocyte Count 0.66 k/cumm (0.11-0.7); Basophils % 0.4; HCT 38.2 % (36.0-46.0); HGB 12.8 g/dL (12.0-15.5); Immature Grans % 0.8; Lymphocytes % 15.7; Mean Corp. HGB Concentration 33.5 g/dL (32.0-36.0); Mean Corpuscular Hemoglobin 31.4 pg (27.0-33.0); Mean Corpuscular Volume 93.6 fL (80-95); Mean Platelet Volume 10.1 fL (8.0-11.0); Monocytes % 8.4; Neutrophils % 72.7; Platelet Count 252 x1000/uL (130-400); RBC 4.08 m/cumm (4.00-5.20); RBC Distribution Width 14.3 % (11.7-14.6); White Blood Cell Count 7.84 k/cumm (4.4-10.8)
[2019-06-10] MEDS: Normal Saline 1,000 ML 1000 ML IV (10:18)
[2019-06-10 10:32] LABS: ALT 15 U/L (14-59); AST 13 U/L (15-37); Albumin 3.7 g/dL (3.4-5.0); Alkaline Phosphatase 98 U/L (46-116); Anion Gap 9.5 mmol/L (3-11); BUN 14 mg/dL (7-18); Bilirubin, Total 0.5 mg/dL (0.2-1.0); CO2 25.5 mmol/L (21.0-32.0); Chloride 104 mmol/L (98-107); Glucose 95 mg/dL (70-100); Potassium 4.9 mmol/L (3.5-5.1); Sodium 139 mmol/L (136-145); Total Protein 7.2 g/dL (6.4-8.2)
[2019-06-10] MEDS: Omnipaque 350 MG/ML 100 ML BTL IJ (10:47)
--- NOTE | 2019-06-10 10:50 | DI.CT_ITS ---
EXAM: CT FACIAL W CLINICAL HISTORY: dental infection, edema and pain right face TECHNIQUE: Post contrast COMPARISON: CERVICAL SPINE WITHOUT CONTRA from 10/06/2015 CHEST WITHOUT CONTRAST from 04/27/2016 CT chest PE CTA from 09/25/2018 FINDINGS: There is no evidence of fracture. There is mild to moderate mucosal thickening along the right maxil zev sinus. The remaining sinuses as well as mastoid air cells appear clear. The visualized portion s of the brain are unremarkable. The orbits appear intact. There is soft tissue swelling and strandi ng in the fat over the right cheek. There is some artifact from dental work. No drainable abscess o r fluid collection is seen. No mass is identified. No dental abscesses are seen. The parotid and s ubmandibular glands are unremarkable. No adenopathy is seen. There is mild calcific plaque at the c ommon carotid bulbs but no significant internal carotid artery stenosis. The vertebral arteries and visualized intracranial vessels are unremarkable. The thyroid is partially included on the exam. T here is a stable appearing right thyroid nodule. IMPRESSION: Soft tissue swelling over the right cheek. No evidence of fracture, abscess or fluid collection. Mu cosal thickening of the right maxillary sinus.
[2019-06-10 12:38] VITALS: BP 125/71; PULSE 90; RESP 18; TEMP 36.6; O2SAT 98
[2019-06-10] MEDS: Amoxicillin 875/Clav. 125 TAB PO (12:40)
[2019-06-10] MEDS: oxyCODONE 5 mg/Acetaminophen 325 mg TAB 1 TAB PO (12:41)
== END 2019-06-10 12:45 | disposition home or self-care (01) ==
PROVIDERS: Emergency Provider Student in an Organized Health Care Education/Training Program; PCP Family Medicine
DX: K04.7 Periapical abscess without sinus (principal); R22.0 Localized swelling, mass and lump, head; I10 Essential (primary) hypertension; J44.9 Chronic obstructive pulmonary disease, unspecified; Z87.891 Personal history of nicotine dependence
CPT/HCPCS: 80053; 96360; 96361; 99285; 70487; 85025; 99284; J3490

== ENCOUNTER 2019-10-27 01:44 | Outpatient (CLI) | payer MEDICARE, MEDICAID, SELFPAY ==
--- NOTE | 2019-10-27 11:27 | DI.MRI_ITS ---
EXAM: MR BRAIN WO/W CLINICAL HISTORY: SPASTIC PARAPARESIS R>L,GRAD INCREASING,?CORD LESION ?DEMYELINATING DISEASE. TECHNIQUE: Multiplanar multisequence MRI was performed. MR examination of the brain was performed a ccording to the usual protocol with additional post contrast axial and coronal T1 weighted imaging. COMPARISON: No exams were available for comparison FINDINGS: No mass lesion or enhancing lesion in the brain. There are a few tiny scattered low intensity areas of high signal in periventricular white matter sparing the corpus callosum, consistent with microvasc ular ischemic changes and not unusual for this age group. No other signal abnormality identified in the brain. The orbital and temporal bone structures appear intact as does the pituitary. There is normal flow v oid in the [id number] vasculature. Diffusion-weighted imaging shows no evidence of cerebral infarction. Susceptibility-weighted imaging shows no evidence of hemorrhage. IMPRESSION: Examination is essentially unremarkable for age with minimal white matter signal changes consistent w ith microvascular ischemic changes. DATA REPOSITORY:
--- NOTE | 2019-10-27 11:27 | DI.MRI_ITS ---
EXAM: MR THORACIC SPINE WO/W CLINICAL HISTORY: SPASTIC PARAPARESIS R>L, R53.1, ? CORD LESION ?DEMYELINATING DISEASE. TECHNIQUE: Multiplanar multisequence MRI was performed. MR examination of thoracic spine was perfor med according to the usual protocol with additional post contrast T1 weighted axial and sagittal imag ing. COMPARISON: No exams were available for comparison FINDINGS: The spinal cord is of normal diameter and shows normal signal throughout. No enhancing lesion identi fied in the spinal cord or conus. No significant bony signal abnormality seen and no enhancing lesion noted. There is a mild left convex lower thoracic scoliosis with right convex upper thoracic curve. There a re facet degenerative changes at multiple levels. The facet joint on the right at the T3-4 level andre ws marked hypertrophic changes, which appear to narrow the right neural foramen at this level. Facet joint on the left at T6-7 shows prominent hypertrophic changes, which appear to narrow the left T6-7 neural foramen as well. Otherwise neural foramina appear well maintained. There is a small to moderate-sized right disc herniation at T7-T8 and there is a tiny left paracentra l disc herniation at this level as well. There may be slight narrowing of the right neural foramen s econdary to the left-sided disc herniation. There is no significant impingement on the spinal cord a t this level. No other disc herniation identified in the thoracic region. IMPRESSION: No evidence of spinal cord tumor or demyelinating process. Marked focal facet arthropathy at T3-4 on the right and T6-7 on the left appears to cause narrowing o f the corresponding neural foramina at these levels. Small to moderate-sized right paracentral/right lateral disc herniation at T7-8, which may narrow the right neural foramen at this level. DATA REPOSITORY:
[2019-10-28] MEDS: Normal Saline Flush 10 ML SYR IVP (10:30)
[2019-10-28] MEDS: Gadoterate meglumine 20 ML VIAL 19 ML IVP (10:31)
== END 2019-10-27 02:04 ==
PROVIDERS: PCP Family Medicine; Visit Provider Psychiatry & Neurology Clinical Neurophysiology
DX: R53.1 Weakness (principal); R90.82 White matter disease, unspecified; I67.82 Cerebral ischemia; M47.814 Spondylosis without myelopathy or radiculopathy, thoracic region; M41.34 Thoracogenic scoliosis, thoracic region; M51.24 Other intervertebral disc displacement, thoracic region
CPT/HCPCS: 70553; 72157

== ENCOUNTER 2019-10-28 01:56 | Outpatient (CLI) | payer MEDICARE, MEDICAID, SELFPAY ==
[2019-10-28 10:11] LABS: CREATININE 1.14 mg/dL (0.55-1.02); Estimated GFR 48.46 (mL/min/1.73m2)
== END 2019-10-28 02:16 ==
PROVIDERS: PCP Family Medicine; Visit Provider Psychiatry & Neurology Clinical Neurophysiology
DX: R53.1 Weakness (principal); Z13.89 Encounter for screening for other disorder
CPT/HCPCS: 82565